=== PATIENT | female | born 1945 | race Caucasian/White ===

== ENCOUNTER 2017-02-10 19:47 | Outpatient (CLI) | payer MEDICARE, OTHER | END 2017-02-10 19:48 | disposition critical access hospital (66) | DX: R53.1 Weakness (principal); R29.810 Facial weakness | CPT/HCPCS: A0425; A0429 ==

== ENCOUNTER 2017-02-10 19:55 | Emergency (ER) | payer MEDICARE, OTHER | END 2017-02-10 22:07 | disposition home or self-care (01) | DX: R53.1 Weakness (principal); Z86.73 Personal history of transient ischemic attack (TIA), and cerebral infarction without residual deficits; I10 Essential (primary) hypertension; I25.2 Old myocardial infarction; G47.30 Sleep apnea, unspecified; K21.9 Gastro-esophageal reflux disease without esophagitis; Z79.82 Long term (current) use of aspirin ==

== ENCOUNTER 2019-07-09 08:19 | Outpatient (CLI) | payer MEDICARE, OTHER ==
--- NOTE | 2019-07-09 10:27 | DEXA Report ---
Reason: POST MENOPAUSAL, SCREENING FOR OSTEOPOROSIS Procedure Date: 07/09/2019 Accession Number: [id number] / [id number] Procedure: DEX - Dexa Spine and/or Hip CPT Code: FULL RESULT: EXAM: Dexa Spine and/or Hip DATE: 07/09/2019 9:05 AM CLINICAL HISTORY: POST MENOPAUSAL, SCREENING FOR OSTEOPOROSIS TECHNIQUE: Dual energy x-ray absorptiometry (DXA) was performed on a [facility]. Regions measured are the AP Spine, femoral neck, and if needed forearm. COMPARISON: 02/12/2012 In accordance with the International Society for Clinical Densitometry (ISCD) guidelines, data from previous exams may be reanalyzed using current recommendations and techniques. This is done to allow a more accurate basis for comparison with the current study. FINDINGS: The data for the lumbar spine is as follows: BMD (g/cm/cm) T-SCORE Z-SCORE REGION L1 1.191 0.5 1.7 L2 1.218 0.2 1.4 L3 1.354 1.3 2.5 L4 1.334 1.1 2.3 TOTAL 1.281 0.8 2.1 NOTE: All evaluable vertebrae are used for classification The data for the hip is as follows: BMD (g/cm/cm) T-SCORE Z-SCORE REGION Neck 0.849 -1.4 0.3 TOTAL 1.030 0.2 1.6 NOTE: The femoral neck or total proximal femur, whichever is lowest, is used for classification. IMPRESSION: THE WHO CLASSIFICATION BASED ON THE INTERNATIONAL REFERENCE STANDARD IS OSTEOPENIA, REFERENCE LEFT FEMORAL NECK. THE FRACTURE RISK IS INCREASED. RECOMMENDATION: Patients with diagnosis of osteoporosis or osteopenia should have regular bone mineral density assessment. For those eligible for Medicare, routine testing is allowed once every 2 years. Testing frequency can be increased for patients who have rapidly progressing disease or for those who are receiving medical therapy to restore bone mass. COMMENT: World Health Organization (WHO) definitions for osteoporosis and osteopenia: NORMAL BMD: T-score at -1.0 or higher, fracture risk is low OSTEOPENIA BMD: T-score between -1.0 and -2.5, fracture risk is increased. OSTEOPOROSIS BMD: T-score at -2.5 or lower, fracture risk is high. National Osteoporosis Foundation recommends: 1. Obtain adequate dietary calcium (at least 1200 mg per day) and vitamin D (400-800 international units per day). 2. Participate, as appropriate, in regular weightbearing and muscle-strengthening exercise. 3. Avoid tobacco use and reduce alcohol and caffeine intake. 4. For more detailed information see the website at www.NOF.org.
== END 2019-07-09 08:20 | disposition home or self-care (01) ==
LOC: DI 08:19
PROVIDERS: ATTEND Family Medicine
DX: Z13.820 Encounter for screening for osteoporosis (principal); M85.88 Other specified disorders of bone density and structure, other site; Z78.0 Asymptomatic menopausal state
CPT/HCPCS: 77080

== ENCOUNTER 2021-11-22 08:17 | Outpatient (CLI) | payer MEDICARE, OTHER ==
--- NOTE | 2021-11-22 08:56 | CT Report ---
PROCEDURE: HEAD WO INDICATIONS: Aphasia, history of cerebrovascular accident TECHNIQUE: Noncontrast 4.5 mm thick angled axial sections acquired from the foramen magnum to the vertex. For r adiation dose reduction, the following was used: automated exposure control, adjustment of mA and/or kV according to patient size. COMPARISON: 02/10/[address] FINDINGS: Image quality: Excellent. CSF spaces: Basal cisterns are patent. No extra-axial fluid collections. Ventricles are normal in size and shape. Brain: Small hypodense region in the left basal ganglia and striatocapsular region, not present on th e prior study. This most likely represents chronic mitral vascular ischemic change or potentially seq uela of remote ischemic event. Otherwise maintained horan-white matter differentiation with no CT evid ence of acute infarct. No acute intracranial hemorrhage, mass effect, or midline shift. Skull and face: Calvarium and visualized facial bones are intact, without suspicious lesions. Sinuses: Visualized sinuses and mastoids are clear. IMPRESSION: No acute intracranial finding. Small left basal ganglia and striatocapsular hypodensity likely chronic vascular ischemic change or potentially remote ischemic event. MRI recommended if ther e concern for an acute ischemic process. Reviewed by: Bryan Jj MD on 11/22/2021 8:54 AM PST Approved by: Bryan Jj MD on 11/22/2021 8:54 AM PST Station ID: [id number]
== END 2021-11-22 08:18 | disposition home or self-care (01) ==
LOC: DI 08:17
PROVIDERS: ATTEND Student in an Organized Health Care Education/Training Program
DX: R47.01 Aphasia (principal); Z86.73 Personal history of transient ischemic attack (TIA), and cerebral infarction without residual deficits

== ENCOUNTER 2021-12-25 09:44 | Outpatient (CLI) | payer MEDICARE, OTHER ==
[2021-12-25] MEDS ORDERED: GADOBUTROL 10 MMOL/10 ML VIAL ONE (10:02)
--- NOTE | 2021-12-25 12:25 | MRI Report ---
PROCEDURE: Brain W/WO INDICATIONS: APHASIA CONTRAST: IV CONTRAST: Gadavist ml: 8.1 TECHNIQUE: Noncontrast axial T1 spin echo, axial T2 fast spin echo, sagittal and axial FLAIR, coronal T2 fast sp in echo, axial gradient echo, axial diffusion and ADC through the brain. After the administration of contrast, axial and coronal T1 spin echo with fat saturation through the brain. COMPARISON: Multiple prior head CT studies FINDINGS: Image quality: Excellent. CSF spaces: Basal cisterns are patent. No extra-axial fluid collections. Ventricles are normal in size and shape. Brain: No restricted diffusion to indicate recent ischemia. Remote lacunar infarct in the left basal ganglia. Additional tiny remote lacunar infarct in the right elin. Moderate chronic microvascular isc hemic changes and mild global cerebral volume loss. No unexpected intracranial susceptibility or enha ncement. No mass effect or midline shift. The major intracranial vascular flow voids are maintained. Skull and face: Calvarial marrow is normal in signal. Orbits appear normal. Sinuses: Moderate sized right mastoid air cell effusion. Left mastoid air cells clear. Paranasal sinu ses are predominantly clear. IMPRESSION: No acute finding. Remote left basal ganglia and right pontine lacunar infarcts. Mild global cerebral volume loss and chronic microvascular ischemic change. Reviewed by: Bryan Jj MD on 12/25/2021 12:24 PM PST Approved by: Bryan Jj MD on 12/25/2021 12:24 PM PST Station ID: [id number]
[2021-12-25] MEDS ORDERED: GADOBUTROL 10 MMOL/10 ML VIAL IVP ONE (12:50)
== END 2021-12-25 09:45 | disposition home or self-care (01) ==
LOC: DI 09:44
PROVIDERS: ATTEND Student in an Organized Health Care Education/Training Program
DX: R47.01 Aphasia (principal); G31.89 Other specified degenerative diseases of nervous system; I67.82 Cerebral ischemia; R90.89 Other abnormal findings on diagnostic imaging of central nervous system
CPT/HCPCS: 70553; A9585

== ENCOUNTER 2023-12-28 14:19 | Outpatient (CLI) | payer MEDICARE, OTHER | END 2023-12-28 14:20 | disposition critical access hospital (66) | LOC: EMS 14:19 | DX: R53.1 Weakness (principal); R47.81 Slurred speech; R53.83 Other fatigue; R29.810 Facial weakness; I10 Essential (primary) hypertension | CPT/HCPCS: A0425; A0429 ==

== ENCOUNTER 2023-12-28 14:34 | Inpatient (IN) | payer MEDICARE, OTHER ==
--- NOTE | 2023-12-28 14:38 | ED Physician Documentation ---
PD HPI FOCAL NEURO - Stated complaint Stated Complaint: GLF/R SIDED WEAKNESS - History obtained from History obtained from: Patient, EMS - Additional information Additional information: This is an 78-year-old woman with history of hypertension and stroke who presents by ambulance with concern for stroke and also a fall today. Reportedly had been weak for a couple of days and she said she started having trouble speaking yesterday morning. Today she was weak and fell going forward and hitting her head and neck on the coffee table. There is no loss of consciousness. 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 Cardiovascular: Coronary stent - Present Medications Home Medications: Ambulatory Orders Medication Instructions Recorded Confirmed Fluoxetine HCl 20 mg PO DAILY 02/22/15 02/10/17 Metoprolol Tartrate 25 mg PO DAILY 02/22/15 02/10/17 Omeprazole 20 mg PO DAILY 02/22/15 02/10/17 Aspirin 81 mg PO DAILY 02/10/17 02/10/17 Cholestyramine [Questran] 4 gm PO DAILY 02/10/17 02/10/17 - Allergies Allergies/Adverse Reactions: Allergies Allergy/AdvReac Type Severity Reaction Status Date / Time levothyroxine sodium Allergy Unknown Verified 12/28/23 14:45 Sulfa (Sulfonamide Allergy Hives Verified 12/28/23 14:45 Antibiotics) - Social History Does the pt smoke?: No Smoking Status: Never smoker Does the pt drink ETOH?: No Does the pt have substance abuse?: No - Immunizations Immunizations are current?: Yes - POLST Patient has POLST: No PD ED PE NORMAL - Vitals Vital signs reviewed: Yes - General General: Other (Slow slurred speech but she is alert and oriented) - HEENT HEENT: PERRL, EOMI, Other (Potentially a right facial droop. There is some bruising over the right anterior neck. No midline spinal tenderness.) - Neck Neck: Supple, no meningeal sign, No bony TTP - Cardiac Cardiac: RRR, No murmur - Respiratory Respiratory: No respiratory distress, Clear bilaterally - Abdomen Abdomen: Non tender - Neuro Neuro: Alert and oriented X 3 Eye Opening: Spontaneous Motor: Obeys Commands Verbal: Oriented GCS Score: 15 - Psych Psych: Normal mood, Normal affect NIHSS - Time Time: 14:35 - Level of Consciousness Level of consciousness: (0) Alert, Keenly responsive LOC Questions: (0) Answers both Q's correct LOC Commands: (0) Performs both correctly - Gaze Best Gaze: (0) Normal - Visual Visual: (0) No loss - Facial Palsy Facial Palsy: (1) Minor paralysis - Motor Arms (both separate) Motor Arm (right): (0) No drift Motor Arm (left): (0) No drift - Motor Legs (both separate) Motor Leg (right): (2) Some effort against gravity Motor Leg (left): (0) No drift - Limb Ataxia Limb Ataxia: (0) Absent - Sensory Sensory: (0) Normal - Best Language Best Language: (1) [id number] - Dysarthria Dysarthria: (2) Severe dysarthria - Extinction and Inattention (formally neg Extinction and inattention: (0) No abnormality - Total Score/Results Total Score/Result: 6 Results - Vitals Vitals: Vital Signs - 24 hr 12/28/23 14:37 Temperature 35.6 C L Heart Rate 70 Respiratory 21 Rate Blood Pressure 221/87 H O2 Saturation 96 Oxygen O2 Source Room air - EKG (time done) 1520 EKG releavant findings:: EKG personally interpreted by author of this note. Relevant findings are: Rate: Rate (enter#) (86) Rhythm: NSR, LAE Rhodell: Normal Intervals: Prolonged QT QRS: Normal Ischemia: Non specific changes. No: ST elevation c/w ischemia - Labs Labs: Laboratory Tests 12/28/23 12/28/23 12/28/23 14:47 14:47 14:47 WBC 6.4 RBC 4.49 Hgb 12.4 Hct 39.7 MCV 88.4 MCH 27.6 MCHC 31.2 L RDW 13.5 Plt Count 183 MPV 9.5 Neut # (Auto) 3.9 Lymph # (Auto) 1.9 Lea # (Auto) 0.4 Eos # (Auto) 0.1 Baso # (Auto) 0.0 Absolute Nucleated RBC 0.00 Nucleated RBC % 0.0 PT 11.7 INR 1.1 Sodium 138 Potassium 4.0 Chloride 108 Carbon Dioxide 23 Anion Gap 7.0 BUN 24 H Creatinine 1.1 Estimated GFR (MDRD) 48 L Glucose 88 Calcium 9.0 Total Bilirubin 0.5 AST 15 ALT 14 Alkaline Phosphatase 59 Total Protein 6.3 L Albumin 3.9 Globulin 2.4 Albumin/Globulin Ratio 1.6 Lipase 23 - Rads (name of study) CT of the head and CT angiography of the head and neck were unremarkable. Relevant Findings:: Final report received, EMP independent interpretation of test PD Medical Decision Making - ED course ED course: 78-year-old woman presents with strokelike symptoms with slurred speech and some lateralizing weakness. She is not a tPA candidate given the timeframe, she was already developing symptoms 2 days ago. Workup in the emergency department demonstrated normal CBC, coags and CMP. CT angiography of the head and neck and plain CT did not demonstrate a stroke, but discussed with patient and that small stroke can be missed by this and probably needs to come in the hospital for MRI. Urine pending on admission. Spoke with Dr Hutson for admit 1530 Departure - Departure Disposition: ED Place in Observation Clinical Impression: Stroke-like symptoms Condition: Stable
[2023-12-28 14:54] LABS: BASOPHILS % (AUTO) 0.6 %; EOSINOPHILS # (AUTO) 0.1 10^3/uL (0.0-0.7); HCT - HEMATOCRIT 39.7 % (37.0-47.0); HGB - HEMOGLOBIN 12.4 g/dL (12.0-16.0); LYMPHOCYTES # (AUTO) 1.9 10^3/uL (1.5-3.5); LYMPHOCYTES % (AUTO) 29.4 %; MEAN CORPUSCULAR HEMOGLOBIN 27.6 pg (27.0-31.0); MEAN CORPUSCULAR HGB CONC 31.2 g/dL (32.0-36.0); MEAN CORPUSCULAR VOLUME 88.4 fL (81.0-99.0); MEAN PLATELET VOLUME 9.5 fL (7.9-10.8); MONOCYTES # (AUTO) 0.4 10^3/uL (0.0-1.0); MONOCYTES % (AUTO) 6.9 %; NEUTROPHILS # (AUTO) 3.9 10^3/uL (1.5-6.6); NEUTROPHILS % (AUTO) 60.6 %; PLT - PLATELET COUNT 183 10^3/uL (130-450); RED BLOOD COUNT 4.49 10^6/uL (4.20-5.40); RED CELL DISTRIBUTION WIDTH 13.5 % (12.0-15.0); WHITE BLOOD COUNT 6.4 x10^3/uL (4.8-10.8)
[2023-12-28 15:01] LABS: INR 1.1 (0.8-1.2); PT - PROTHROMBIN TIME 11.7 secs (9.9-12.6)
[2023-12-28 15:15] LABS: ALBUMIN 3.9 g/dL (3.2-5.5); ALBUMIN/GLOBULIN RATIO 1.6 (1.0-2.2); BILIRUBIN,TOTAL 0.5 mg/dL (0.2-1.0); CREATININE 1.1 mg/dL (0.6-1.3); TOTAL PROTEIN 6.3 g/dL (6.4-8.9)
--- NOTE | 2023-12-28 15:19 | CT Report ---
PROCEDURE: Head W/O Stroke Protocol INDICATIONS: Neuro deficit, acute, stroke suspected TECHNIQUE: Noncontrast 4.5 mm thick angled axial sections acquired from the foramen magnum to the vertex, with c oronal reformats. For radiation dose reduction, the following was used: automated exposure control, adjustment of mA and/or kV according to patient size. COMPARISON: Head CT 11/22/2021. FINDINGS: Image quality: Excellent. CSF spaces: Basal cisterns are patent. No extra-axial fluid collections. Ventricles are normal in size and shape. Brain: No midline shift. No intracranial masses or hemorrhage. Probable prior lacunar infarcts in t he left basal ganglia and left thalamus, similar. No new area of hypodensity in a large vascular dis tribution demonstrated. Periventricular hypodensity most consistent with chronic microvascular ischem ic disease. Skull and face: Calvarium and visualized facial bones are intact, without suspicious lesions. Sinuses: Visualized sinuses and mastoids are clear. IMPRESSION: No acute intracranial hemorrhage. No interval change appreciated. Probable prior lacunar infarcts in the left basal ganglia and thalamus. This study fulfills neurological imaging criteria for inclusion or exclusion of acute stroke therapie s based on available published neurological imaging guidelines. Reviewed by: Erwin Guardado MD on 12/28/2023 3:17 PM PDT Approved by: Erwin Guardado MD on 12/28/2023 3:17 PM PDT Station ID: [id number]
--- NOTE | 2023-12-28 15:23 | CT Report ---
PROCEDURE: Angio Head/Neck INDICATIONS: cva sx TECHNIQUE: After the administration of intravenous contrast, 1 mm thick sections acquired from the aortic arch t hrough the [place] [employer]. 3-dimensional yppyohk-flycigohf-fngldqtcly (MIP) and/or volume renderin g reformats were acquired of the central intracranial vasculature and neck separately. For radiation dose reduction, the following was used: automated exposure control, adjustment of mA and/or kV acco rding to patient size. CONTRAST: 80ml omni 300 COMPARISON: Correlation is made with noncontrast head CTs, 12/28/2023, 11/22/2021. Correlation is also made with brain MRI, 12/25/2021. FINDINGS: Image quality: Diagnostic. HEAD CT: CSF Spaces: Basal cisterns are patent. No extra-axial fluid collections. Ventricles are normal in size and shape. Brain: No significant abnormality is seen for scanning technique. Skull and face: Calvarium and visualized facial bones appear intact, without suspicious lesions. Sinuses: Visualized sinuses and mastoids are clear. HEAD CT ANGIOGRAPHY: Anterior circulation: Intracranial internal carotid arteries are normal in size and flow. The flow within the paired anterior cerebral arteries is normal and symmetric. The flow within the middle cer ebral arteries is normal and symmetric. The anterior communicating artery is seen. No aneurysms are seen. Posterior circulation: The right V4 segment is within normal limits. The left V4 segment and largely terminates in the right posterior inferior cerebellar artery. There is a normal appearing basilar ar arabella. The flow within the posterior cerebral arteries is normal and symmetric. No stenoses, occlusio ns, or aneurysms. NECK CT ANGIOGRAPHY: Carotid system: The great vessels demonstrate a conventional anatomy as they arise from the aortic a [facility]. The origins of the common carotid arteries appear patent. The common carotid arteries demonstr ate normal caliber and courses. The right carotid bifurcation region is widely patent. On the left, there is focal hard and soft plaq ue seen, with 40-50% narrowing involving the origin of the left internal carotid artery. The more dis christiano internal carotid arteries demonstrate normal course and caliber. Posterior circulation: The origins of the vertebral arteries both appear widely patent. The more bonilla perior extracranial portions of both vertebral arteries also demonstrate normal courses and calibers. The right vertebral artery is dominant to the left. Soft tissues: Visualized neck soft tissues demonstrate no suspicious abnormalities. Bones: No suspicious bony lesions. Visualized cervical spine appears normally aligned. IMPRESSION: No significant intracranial arterial abnormality is seen. No significant abnormality is seen within the arteries of the neck. Additional findings: [place] [employer] developmental anomalies The estimate of stenosis included in the report of the imaging study was calculated using the NASCET method Reviewed by: Elver Scott MD on 12/28/2023 2:22 PM EDY Approved by: Elver Scott MD on 12/28/2023 2:22 PM EDY Station ID: [id number]
[2023-12-28] MEDS ORDERED: iohexoL-300 100 ML VIAL ONE (15:24)
[2023-12-28] MEDS ORDERED: ONDANSETRON 4 MG/2 ML VIAL IVP PRN (15:45)
--- NOTE | 2023-12-28 15:47 | HISTORY & PHYSICAL EXAMINATION ---
Chief Complaint - Chief Complaint Chief Complaint: slurred speech, right sided weakness History of Present Illness - Admitted From Admitted From:: ED, came from home - History Obtained From Records Reviewed: Yes History obtained from: ED provider, patient and her Exam Limitations: No - History of Present Illness HPI Comment/Other: 78 years old female with history of hypertension, previous CVA 10 years ago and 3 years ago with residual mild slurred speech and right-sided weakness. Presented to the ED for worsened slurred speech and right-sided weakness for 3 days. Patient reported that they noticed that patient has difficulty of walking about 3 days ago, and slurred speech becomes more significant, along with right-sided facial droop.Patient is able to provide some history and her speech is slurred and slow, however able to understand and able to communicate.Patient denied other discomfort, reports she has been taking her losartan and metoprolol for blood pressure control. No other new medication changes or other discomfort reported In the ED her vitals were stable except hypertension of 220/110, labs unremarkable. CT head and CTA head and neck No acute pathology reported. Patient is admitted to [facility] for further stroke workup History - Past Medical History Cardiovascular: reports: Hypertension, [place] Respiratory: reports: Sleep apnea Neuro: reports: CVA Endocrine/Autoimmune: reports: None GI: reports: GERD : reports: None HEENT: reports: Chronic hearing loss Psych: reports: Anxiety, Panic attacks, Claustrophobia Musculoskeletal: reports: None Derm: reports: None MRSA Hx?: No - Past Surgical History General: reports: Cholecystectomy, Appendectomy /HEADER DOCK: reports: Hysterectomy Cardiovascular: reports: Coronary stent - POLST Patient has POLST: No Meds/Allgy - Home Medications Home Medications: Ambulatory Orders Medication Instructions Recorded Confirmed Fluoxetine HCl 20 mg PO DAILY 02/22/15 02/10/17 Metoprolol Tartrate 25 mg PO DAILY 02/22/15 02/10/17 Omeprazole 20 mg PO DAILY 02/22/15 02/10/17 Aspirin 81 mg PO DAILY 02/10/17 02/10/17 Cholestyramine [Questran] 4 gm PO DAILY 02/10/17 02/10/17 - Allergies Allergies/Adverse Reactions: Allergies Allergy/AdvReac Type Severity Reaction Status Date / Time levothyroxine sodium Allergy Unknown Verified 12/28/23 14:45 Sulfa (Sulfonamide Allergy Hives Verified 12/28/23 14:45 Antibiotics) Review of Systems - Constitutional Constitutional: reports: Weakness. denies: Fever, Chills, Weight loss - Eyes Eyes: denies: Pain, Field loss - Cardiovascular Cariovascular: denies: Palpitations, Chest pain, Edema - Respiratory Respiratory: denies: Cough, Wheezing - Gastrointestinal Gastrointestinal: denies: Abdominal pain, Abdominal distention, Constipation, Diarrhea - Genitourinary Genitourinary: denies: Dysuria, Frequency, Urgency - Integumentary Integumentary: denies: Rash - Neurological Neurological: reports: Focal weakness (Right-sided weakness), Slurred speech - Endocrine Endocrine: denies: Intolerance to cold, Intolerance to heat - Hematologic/Lymphatic Hematologic/Lymphatic: denies: Anemia, Blood clots Prior Level of Functionality: Lives with , they have over 20 years. Baseline ADLs with minimal help Exam - Vital Signs Vital Signs: Vital Signs x48h Temp Pulse Resp BP Pulse Ox 12/28/23 14:37 35.6 C L 70 21 221/87 H 96 - Physical Exam General Appearance: positive: No acute distress, Alert, Anxious Eyes Bilateral: positive: Normal inspection, PERRL, EOMI ENT: positive: Other Neck: positive: Nml inspection, No JVD Respiratory: positive: Chest non-tender, No respiratory distress Cardiovascular: positive: Regular rate & rhythm Peripheral Pulses: positive: 2+ Abdomen: positive: Non-tender, Nml bowel sounds Skin: positive: Color nml Extremities: positive: Non-tender, No pedal edema Neurologic/Psychiatric: positive: Oriented x3, Facial droop (Right side), Slurr ed/abnml speech, Other (Right-sided weakness, barely able to against gravity) Sepsis Event Note (H) - Evaluation Current Stage of Sepsis: Ruled out Conclusion/Plan - Problem List (1) Cerebrovascular accident (CVA) Conclusion/Plan: Slurred speech, right-sided weakness History of CVA, residual mild slurred speech and mild right-sided weakness Clinically appears to have acute/subacute CVA Patient was not taking aspirin at home Give aspirin and Plavix loading dose then continue dual antiplatelet for 21 days Give Lipitor 40 mg once a day MRI brain tomorrow Echocardiogram tomorrow PT OT speech therapy Likely patient need SNF or inpatient rehab Check A1c, fasting lipid Qualifiers: CVA mechanism: unspecified Qualified Code(s): I63.9 - Cerebral infarction, unspecified (2) HTN (hypertension) Conclusion/Plan: Uncontrolled BP 220/110 in the ED Permissive hypertension for the next 3 days Give labetalol 20 mg if SBP over 200 Qualifiers: Hypertension type: primary hypertension Qualified Code(s): I10 - Essential (primary) hypertension - Lab Results Lab results reviewed: Yes Fish Bones: 12/28/23 14:47 12/28/23 14:47 - Diagnostic Imaging Results Diagnostic Imaging Results: positive: Final report reviewed (CT head no acute intracranial abnormality)
[2023-12-28] MEDS: LABETALOL 20 MG/4 ML SYRINGE IVP PRN (17:09)
[2023-12-28] MEDS: SODIUM CHLORIDE FLUSH 0.9% 10 ML SYRINGE IVP SCH (17:21)
[2023-12-28 17:30] LABS: BILIRUBIN,URINE NEGATIVE (NEGATIVE); GLUCOSE, URINE (UA) NEGATIVE (NEGATIVE); KETONES,URINE (UA) NEGATIVE (NEGATIVE); LEUKOCYTE ESTERASE, URINE NEGATIVE (NEGATIVE); NITRITE,URINE NEGATIVE (NEGATIVE); OCCULT BLOOD,URINE NEGATIVE (NEGATIVE); PH,URINE 6.5 PH (5.0-7.5); PROTEIN,URINE TRACE mg/dL (NEGATIVE); UROBILINOGEN,URINE 0.2 (NORMAL) E.U./dL (NORMAL)
[2023-12-28 17:32] LABS: CLARITY,URINE CLEAR (CLEAR)
[2023-12-28] MEDS: CLOPIDOGREL 300 MG TABLET PO ONE (17:40)
[2023-12-28] MEDS: iohexoL-300 100 ML VIAL IVP ONE (18:20)
[2023-12-28] MEDS: SODIUM CHLORIDE 0.9% 500 ML IV ONE (20:04)
[2023-12-28] MEDS: ATORVASTATIN 40 MG TABLET PO SCH (21:14)
[2023-12-28] MEDS: HYDROcod/ACETAM 5/325 MG TABLET PO PRN (21:45)
[2023-12-29 05:15] LABS: BASOPHILS % (AUTO) 0.5 %; EOSINOPHILS # (AUTO) 0.1 10^3/uL (0.0-0.7); EOSINOPHILS % (AUTO) 2.1 %; LYMPHOCYTES # (AUTO) 1.2 10^3/uL (1.5-3.5); MEAN CORPUSCULAR HEMOGLOBIN 27.2 pg (27.0-31.0); MEAN CORPUSCULAR HGB CONC 30.8 g/dL (32.0-36.0); MEAN CORPUSCULAR VOLUME 88.4 fL (81.0-99.0); MEAN PLATELET VOLUME 9.7 fL (7.9-10.8); MONOCYTES # (AUTO) 0.4 10^3/uL (0.0-1.0); MONOCYTES % (AUTO) 7.5 %; NEUTROPHILS # (AUTO) 3.8 10^3/uL (1.5-6.6); NEUTROPHILS % (AUTO) 67.5 %; PLT - PLATELET COUNT 176 10^3/uL (130-450); RED BLOOD COUNT 4.41 10^6/uL (4.20-5.40); RED CELL DISTRIBUTION WIDTH 13.6 % (12.0-15.0); WHITE BLOOD COUNT 5.6 x10^3/uL (4.8-10.8)
[2023-12-29 05:33] LABS: BUN - BLOOD UREA NITROGEN 20 mg/dL (6-20); CALCIUM 8.7 mg/dL (8.5-10.3); CARBON DIOXIDE - CO2 25 mmol/L (21-32); CHLORIDE 108 mmol/L (101-111); CHOL/HDL RATIO 6.4 (<4.4); CHOLESTEROL 237 mg/dL; CREATININE 1.2 mg/dL (0.6-1.3); GFR - MDRD 43 (>89); GLUCOSE 100 mg/dL (74-104); HDL CHOLESTEROL 37 mg/dL; LDL CHOLESTEROL,CALCULATED 161 mg/dL; LDL/HDL RATIO 4.4 (<4.4); POTASSIUM 3.5 mmol/L (3.5-4.5); SODIUM 141 mmol/L (135-145); TRIGLYCERIDES 193 mg/dL (48-352); VLDL CHOLESTEROL 39 mg/dL
--- NOTE | 2023-12-29 07:32 | PROVIDER PROGRESS NOTE ---
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 -Permissive HTN, treat if SBP>200 -give dual antiplatelet for 21 days, then ASA life long -give lipitor -PT/OT/ST -likely needs IPR vs SNF placement (2) HTN (hypertension) Qualifiers: Hypertension type: primary hypertension Qualified Code(s): I10 - Essential (primary) hypertension Assessment/Plan: permissive hypertention (3) HLD (hyperlipidemia) Assessment/Plan: give liptor Goal LDL<70 - Current Meds Current Meds: Current Medications Generic Name Dose Route Start Last Admin Trade Name Freq PRN Reason Stop Dose Admin Hydrocodone Bitart/Acetaminophen 1 tab 12/28/23 15:45 12/28/23 21:45 Hydrocod/Acetam 5/325 Mg Tablet PO 1 tab Q4HR PRN Administration Pain 5 to 7 Atorvastatin Calcium 40 mg 12/28/23 21:00 12/28/23 21:14 Atorvastatin 40 Mg Tablet PO 40 mg QPM JANET Administration Sodium Chloride 10 ml 12/28/23 17:00 12/29/23 01:41 Sodium Chloride Flush 0.9% 10 Ml Syringe IVP 10 ml 0100,0900,1700 JANET Administration - Lab Result Lab results reviewed: Yes Fish Bone Diagrams: 12/29/23 04:53 12/29/23 04:53 - Additional Planning My Orders: My Active Orders 12/28/23 15:45 Activity Orders [RC] Q2HR IO [RC] IOSHIFT Incentive Spirometry - RT [RC] TID Initiate Bowel Care Protocol [RC] .protocol Initiate Line Care Protocol [RC] QSHIFT Initiate Personal Care Protoco [RC] .protocol Oxygen Therapy [RC] .PRN Vital Signs [RC] 0800,1600,0000 Acetaminophen [Tylenol] 650 mg PO Q4HR PRN HYDROcod/ACETAM 5/325 [[place] 5/325] 1 tab PO Q4HR PRN Ondansetron Inj [Zofran Inj] 4 mg IVP Q6HR PRN Ondansetron Odt [Zofran Odt] 4 mg TL Q6HR PRN Sodium Chloride Flush 0.9% [Normal Saline Flush 0.9%] 10 ml IVP PRN PRN Code Status [OTHERS] Routine Condition of Patient [OTHERS] Routine DVT Prophylaxis [OTHERS] Routine 12/28/23 16:35 RN MRI Screening [RC] .ONCE Brain WO [MRI] Routine 12/28/23 16:36 Echo Complete w/Bubble Study [ECHO] Routine 12/28/23 17:00 Sodium Chloride Flush 0.9% [Normal Saline Flush 0.9%] 10 ml IVP 0100,0900,1700 12/28/23 19:42 Labetalol Syringe [Trandate Syringe] 10 mg IVP Q6H PRN 12/28/23 21:00 Atorvastatin [Lipitor] 40 mg PO QPM 12/29/23 Breakfast Dysphagia - Soft and Bite Sized [DIET] 12/29/23 04:53 HEMOGLOBIN A1c% [CHEM] DAILYLAB 12/29/23 09:00 Aspirin EC [Ecotrin] 81 mg PO DAILY Clopidogrel [Plavix] 75 mg PO DAILY Enoxaparin [Lovenox] 40 mg SUBQ DAILY Sertraline [Zoloft] 100 mg PO DAILY 12/30/23 05:00 BMP - BASIC METABOLIC PANEL [CHEM] DAILYLAB CBC [CBC - COMP BLD CT W/AUTO DIFF] [HEME] DAILYLAB 12/31/23 05:00 BMP - BASIC METABOLIC PANEL [CHEM] DAILYLAB CBC [CBC - COMP BLD CT W/AUTO DIFF] [HEME] DAILYLAB 01/01/24 05:00 BMP - BASIC METABOLIC PANEL [CHEM] DAILYLAB CBC [CBC - COMP BLD CT W/AUTO DIFF] [HEME] DAILYLAB 01/02/24 05:00 BMP - BASIC METABOLIC PANEL [CHEM] DAILYLAB CBC [CBC - COMP BLD CT W/AUTO DIFF] [HEME] DAILYLAB Subjective - Subjective Patient Reports: Other (slightly better) Nursing Reports: No Complaints Objective Vital Signs: Vital Signs - 24 hr 12/28/23 12/28/23 12/28/23 14:37 17:07 17:18 Temperature 35.6 C L 36.3 C L Heart Rate 70 Heart Rate [ Brachial] Heart Rate [ 76 84 Radial] Respiratory 21 18 Rate Blood Pressure 221/87 H Blood Pressure 231/106 H 189/93 H [Left Brachial artery] Blood Pressure [Right Brachial artery] O2 Saturation 96 94 12/28/23 12/28/23 12/28/23 17:20 17:28 17:34 Temperature Heart Rate Heart Rate [ Brachial] Heart Rate [ 83 86 86 Radial] Respiratory Rate Blood Pressure Blood Pressure 211/91 H 206/87 H 190/92 H [Left Brachial artery] Blood Pressure [Right Brachial artery] O2 Saturation 12/28/23 12/28/23 12/29/23 17:43 18:31 01:51 Temperature 36.3 C L Heart Rate Heart Rate [ Brachial] Heart Rate [ 87 95 70 Radial] Respiratory 17 Rate Blood Pressure Blood Pressure 192/103 H 134/98 H [Left Brachial artery] Blood Pressure 163/79 H [Right Brachial artery] O2 Saturation 94 12/29/23 04:01 Temperature 36.2 C L Heart Rate Heart Rate [ 70 Brachial] Heart Rate [ Radial] Respiratory 16 Rate Blood Pressure Blood Pressure [Left Brachial artery] Blood Pressure 161/89 H [Right Brachial artery] O2 Saturation 93 Oxygen O2 Source Room air I&O (Last 24 Hrs): Intake and Output Totals x24h 12/27/23 12/28/23 12/29/23 22:59 23:59 23:59 Intake Total 50 Output Total 400 Balance -350 General: Alert, Oriented x3 HEENT: PERRLA, EOMI Neck: Supple Neuro: Alert, Focal Deficits, Speech Slurred, Other (Right-sided weakness) Respiratory: No respiratory distress Abdomen: Soft Skin: No rashes - Results Results: Laboratory Results WBC 5.6 x10^3/uL (4.8-10.8) 12/29/23 04:53 RBC 4.41 10^6/uL (4.20-5.40) 12/29/23 04:53 Hgb 12.0 g/dL (12.0-16.0) 12/29/23 04:53 Hct 39.0 % (37.0-47.0) 12/29/23 04:53 MCV 88.4 fL (81.0-99.0) 12/29/23 04:53 MCH 27.2 pg (27.0-31.0) 12/29/23 04:53 MCHC 30.8 g/dL (32.0-36.0) L 12/29/23 04:53 RDW 13.6 % (12.0-15.0) 12/29/23 04:53 Plt Count 176 10^3/uL (130-450) 12/29/23 04:53 MPV 9.7 fL (7.9-10.8) 12/29/23 04:53 Neut # (Auto) 3.8 10^3/uL (1.5-6.6) 12/29/23 04:53 Lymph # (Auto) 1.2 10^3/uL (1.5-3.5) L 12/29/23 04:53 [place] # (Auto) 0.4 10^3/uL (0.0-1.0) 12/29/23 04:53 Eos # (Auto) 0.1 10^3/uL (0.0-0.7) 12/29/23 04:53 Baso # (Auto) 0.0 10^3/uL (0.0-0.1) 12/29/23 04:53 Absolute Nucleated RBC 0.00 x10^3/uL 12/29/23 04:53 Nucleated RBC % 0.0 /100WBC 12/29/23 04:53 PT 11.7 secs (9.9-12.6) 12/28/23 14:47 INR 1.1 (0.8-1.2) 12/28/23 14:47 Sodium 141 mmol/L (135-145) 12/29/23 04:53 Potassium 3.5 mmol/L (3.5-4.5) 12/29/23 04:53 Chloride 108 mmol/L (101-111) 12/29/23 04:53 Carbon Dioxide 25 mmol/L (21-32) 12/29/23 04:53 Anion Gap 8.0 (6-13) 12/29/23 04:53 BUN 20 mg/dL (6-20) 12/29/23 04:53 Creatinine 1.2 mg/dL (0.6-1.3) 12/29/23 04:53 Estimated GFR (MDRD) 43 (>89) L 12/29/23 04:53 Glucose 100 mg/dL (74-104) 12/29/23 04:53 Calcium 8.7 mg/dL (8.5-10.3) 12/29/23 04:53 Total Bilirubin 0.5 mg/dL (0.2-1.0) 12/28/23 14:47 AST 15 IU/L (10-42) 12/28/23 14:47 ALT 14 IU/L (10-60) 12/28/23 14:47 Alkaline Phosphatase 59 IU/L (42-121) 12/28/23 14:47 Total Protein 6.3 g/dL (6.4-8.9) L 12/28/23 14:47 Albumin 3.9 g/dL (3.2-5.5) 12/28/23 14:47 Globulin 2.4 g/dL (2.1-4.2) 12/28/23 14:47 Albumin/Globulin Ratio 1.6 (1.0-2.2) 12/28/23 14:47 Triglycerides 193 mg/dL (48-352) 12/29/23 04:53 Cholesterol 237 mg/dL (-200) H 12/29/23 04:53 LDL Cholesterol, Calc 161 mg/dL (-129) H 12/29/23 04:53 VLDL Cholesterol 39 mg/dL 12/29/23 04:53 HDL Cholesterol 37 mg/dL (60-) L 12/29/23 04:53 LDL/HDL Ratio 4.4 (<4.4) 12/29/23 04:53 Cholesterol/HDL Ratio 6.4 (<4.4) 12/29/23 04:53 Lipase 23 U/L (11-82) 12/28/23 14:47 Urine Color YELLOW 12/28/23 17:17 Urine Clarity CLEAR (CLEAR) 12/28/23 17:17 Urine pH 6.5 PH (5.0-7.5) 12/28/23 17:17 Ur Specific [place] 1.010 (1.002-1.030) 12/28/23 17:17 Urine Protein TRACE mg/dL (NEGATIVE) 12/28/23 17:17 Urine Glucose (UA) NEGATIVE mg/dL (NEGATIVE) 12/28/23 17:17 Urine Ketones NEGATIVE mg/dL (NEGATIVE) 12/28/23 17:17 Urine Occult Blood NEGATIVE (NEGATIVE) 12/28/23 17:17 Urine Nitrite NEGATIVE (NEGATIVE) 12/28/23 17:17 Urine Bilirubin NEGATIVE (NEGATIVE) 12/28/23 17:17 Urine Urobilinogen 0.2 (NORMAL) E.U./dL (NORMAL) 12/28/23 17:17 Ur Leukocyte Esterase NEGATIVE (NEGATIVE) 12/28/23 17:17 Ur Microscopic Review NOT INDICATED 12/28/23 17:17 Urine Culture Comments NOT INDICATED 12/28/23 17:17 - Procedures Procedures: Procedures CATARAC PHACOEMULS/ASPIR (02/23/15) INSERT LENS AT CATAR EXT (02/23/15) Sepsis Event Note (H) - Evaluation Current Stage of Sepsis: Ruled out ABX Reporting Has patient been on IV antibiotics over the past 48 hours?: No
[2023-12-29] MEDS: ASPIRIN EC 81 MG TABLET PO SCH (08:47)
[2023-12-29] MEDS: ENOXAPARIN 40 MG/0.4 ML SYRINGE SUBQ SCH (08:47)
[2023-12-29] MEDS: SERTRALINE 50 MG TABLET PO SCH (08:47)
[2023-12-29] MEDS: CLOPIDOGREL 75 MG TABLET PO SCH (08:47)
[2023-12-29 09:06] LABS: ESTIMATED AVERAGE GLUCOSE 111 mg/dL (70-100); HEMOGLOBIN A1c% 5.5 % (4.27-6.07)
--- NOTE | 2023-12-29 15:08 | PHARMACY PROGRESS NOTE ---
- Best Possible Medication History Admit Date and Time: 12/28/23 1545 Processed by: Pharmacy Medications reviewed in ED?: Yes Medication History completed: Yes Patient Interview: Completed Secondary Source(s): Pharmacy records, Insurance records As the person ultimately responsible for medication therapy, providers are able to order a medication from an existing home medication list in [facility] via the "Reconcile Routine" prior to Confirmation of that medication by media production support manager. Such practice is discouraged except when the physician, in their clinical judgment, deems that a medical need exists for a medication without regard to previous use.
[2023-12-29] MEDS: LABETALOL 20 MG/4 ML SYRINGE IVP PRN (16:34)
[2023-12-29] MEDS: ACETAMINOPHEN 325 MG TABLET PO PRN (17:25)
--- NOTE | 2023-12-29 18:39 | MRI Report ---
PROCEDURE: Brain WO INDICATIONS: cva TECHNIQUE: Noncontrast axial T1 spin echo, axial T2 fast spin echo, sagittal and axial FLAIR, coronal T2 fast sp in echo, axial gradient echo, axial diffusion and ADC through the brain. COMPARISON: None. FINDINGS: Image quality: Excellent. The ventricular system and cortical sulci demonstrate atrophy, consistent for patient's stated age. There are areas of hyperintense T2/FLAIR signal in the periventricular and subcortical white matter. There is no acute intra or extra-axial fluid collection. No acute hemorrhage, mass lesion or midlin e shift. Brainstem is unremarkable. Diffusion-weighted images demonstrate punctate area of hyperint ense diffusion within the left internal capsule. It demonstrates hypointense ADC signal. No chronic i schemic insults. Normal intravascular flow voids are present. Left basal ganglia focus of lacunar i nfarction is present. Globes are symmetrical. Sinuses are aerated. Osseous structures are intact. Mil d fluid is present within the right mastoid air cells. Recommend correlation to potential mastoiditis . IMPRESSION: Small punctate focus of acute/subacute ischemia in the left internal capsule. No superimposed hemorrh age. Moderate atrophy and chronic microvascular ischemic changes. Reviewed by: Leeann Kimball MD on 12/29/2023 6:37 PM PDT Approved by: Leeann Kimball MD on 12/29/2023 6:37 PM PDT Station ID: [id number]
[2023-12-30] MEDS: SODIUM CHLORIDE FLUSH 0.9% 10 ML SYRINGE IVP PRN (01:25)
[2023-12-30 05:42] LABS: BASOPHILS % (AUTO) 0.6 %; EOSINOPHILS # (AUTO) 0.2 10^3/uL (0.0-0.7); EOSINOPHILS % (AUTO) 2.6 %; HCT - HEMATOCRIT 37.4 % (37.0-47.0); HGB - HEMOGLOBIN 11.8 g/dL (12.0-16.0); LYMPHOCYTES # (AUTO) 1.6 10^3/uL (1.5-3.5); LYMPHOCYTES % (AUTO) 25.9 %; MEAN CORPUSCULAR HEMOGLOBIN 27.2 pg (27.0-31.0); MEAN CORPUSCULAR HGB CONC 31.6 g/dL (32.0-36.0); MEAN CORPUSCULAR VOLUME 86.2 fL (81.0-99.0); MEAN PLATELET VOLUME 9.9 fL (7.9-10.8); MONOCYTES # (AUTO) 0.5 10^3/uL (0.0-1.0); MONOCYTES % (AUTO) 8.8 %; NEUTROPHILS # (AUTO) 3.8 10^3/uL (1.5-6.6); NEUTROPHILS % (AUTO) 61.8 %; PLT - PLATELET COUNT 187 10^3/uL (130-450); RED BLOOD COUNT 4.34 10^6/uL (4.20-5.40); RED CELL DISTRIBUTION WIDTH 13.5 % (12.0-15.0); WHITE BLOOD COUNT 6.2 x10^3/uL (4.8-10.8)
[2023-12-30 05:56] LABS: CALCIUM 9.1 mg/dL (8.5-10.3); CREATININE 1.1 mg/dL (0.6-1.3); POTASSIUM 3.5 mmol/L (3.5-4.5)
[2023-12-30] MEDS: polyethylene glycoL 3350 17 GM PACKET PO SCH (08:46)
[2023-12-30] MEDS: hydrALAZINE INJ 20 MG/ML VIAL IVP PRN (11:35)
[2023-12-30] MEDS: ONDANSETRON ODT 4 MG TABLET TL PRN (14:00)
--- NOTE | 2023-12-30 16:42 | PROVIDER PROGRESS NOTE ---
Subjective - Prog Note Date Prog Note Date: 12/30/23 Prog Note Time: 16:39 - Subjective Pt reports feeling: No change Subjective: When assessing her home life, she lives with her . She is with limited mobility but at home she is able to stand and pivot. She does not ambulate much. Here, physical therapy has not really work with her because of elevated blood pressure to 226 systolic. She is very fatigued with this. Denies chest pain, shortness of breath. Today she was 199 systolic whereas the 226 was yesterday. She has been getting labetalol and hydralazine as needed. We are allowing permissive hypertension for the first 48 to 72 hours. She was admitted on the and today will be her third day. She can swallow. Has a little bit of hand eye coordination issues with try to get food to her mouth. She tells me that she had a left eye procedure 4 weeks ago. She has been told to continue her eyedrops of prednisolone and ketorolac daily until January 07. She wonders if I could order those for her. Current Medications - Current Medications Current Medications: Active Medications Acetaminophen (Acetaminophen 325 Mg Tablet) 650 mg PO Q4HR PRN PRN Reason: Pain 1 to 4, or Fever Last Admin: 12/30/23 12:05 Dose: 650 mg Hydrocodone Bitart/Acetaminophen (Hydrocod/Acetam 5/325 Mg Tablet) 1 tab PO Q4HR PRN PRN Reason: Pain 5 to 7 Last Admin: 12/28/23 21:45 Dose: 1 tab Aspirin (Aspirin Ec 81 Mg Tablet) 81 mg PO DAILY [facility] Last Admin: 12/30/23 08:45 Dose: 81 mg Atorvastatin Calcium (Atorvastatin 40 Mg Tablet) 40 mg PO QPM [facility] Last Admin: 12/29/23 20:43 Dose: 40 mg Clopidogrel Bisulfate (Clopidogrel 75 Mg Tablet) 75 mg PO DAILY [facility] Last Admin: 12/30/23 08:45 Dose: 75 mg Enoxaparin Sodium (Enoxaparin 40 Mg/0.4 Ml Syringe) 40 mg SUBQ DAILY [facility] Last Admin: 12/30/23 08:45 Dose: 40 mg Hydralazine HCl (Hydralazine Inj 20 Mg/Ml Vial) 10 mg IVP Q6H PRN PRN Reason: if SBP persistent >200 Last Admin: 12/30/23 11:35 Dose: 10 mg Labetalol HCl (Labetalol 20 Mg/4 Ml Syringe) 10 mg IVP Q6H PRN PRN Reason: if SBP>200 Last Admin: 12/30/23 01:25 Dose: 10 mg Non-Formulary Medication (Ketorolac 0.45% Ophth Drops [Acuvail]) 1 drops LEFTEYE QID [facility] Non-Formulary Medication (Prednisolone 1% Ophth Drops [Pred Forte 1% Ophth Drops]) 1 drops LEFTEYE QID [facility] Ondansetron HCl (Ondansetron Odt 4 Mg Tablet) 4 mg TL Q6HR PRN PRN Reason: Nausea / Vomiting Last Admin: 12/30/23 14:00 Dose: 4 mg Ondansetron HCl (Ondansetron 4 Mg/2 Ml Vial) 4 mg IVP Q6HR PRN PRN Reason: Nausea / Vomiting Polyethylene Glycol (Polyethylene Glycol 3350 17 Gm Packet) 17 gm PO DAILY [facility] Last Admin: 12/30/23 08:46 Dose: 17 gm Sertraline HCl (Sertraline 50 Mg Tablet) 100 mg PO DAILY [facility] Last Admin: 12/30/23 08:45 Dose: 100 mg Sertraline HCl (Sertraline 50 Mg Tablet) 100 mg PO DAILY [facility] Sodium Chloride (Sodium Chloride Flush 0.9% 10 Ml Syringe) 10 ml IVP 0100,0900,1700 [facility] Last Admin: 12/30/23 16:21 Dose: 10 ml Sodium Chloride (Sodium Chloride Flush 0.9% 10 Ml Syringe) 10 ml IVP PRN PRN PRN Reason: NEEDED PER PROVIDER ORDERS Last Admin: 12/30/23 11:35 Dose: 10 ml Metoprolol Tartrate 25 mg PO DAILY 02/22/15 Omeprazole 20 mg PO DAILY 02/22/15 Aspirin 81 mg PO DAILY 02/10/17 Cholestyramine [Questran] 4 gm PO DAILY 02/10/17 Ketorolac 0.45% Ophth Drops [Acuvail] 1 drops LEFTEYE QID 12/29/23 Losartan [Cozaar] 50 mg PO DAILY 12/29/23 Sertraline HCl 100 mg PO DAILY 12/29/23 prednisoLONE 1% OPHTH DROPS [Pred Forte 1% Ophth Drops] 1 drops LEFTEYE QID 12/18 11/12 Objective - Vital Signs/Intake & Output Reviewed Vital Signs: Yes Vital Signs: Vital Signs x48h Temp Pulse Pulse Resp BP BP BP 12/30/23 16:08 36.6 C 93 18 172/90 H 12/30/23 14:02 36.7 C 101 H 18 187/84 H 12/30/23 13:30 175/75 H 12/30/23 12:51 36.7 C 78 18 180/111 H 12/30/23 12:07 80 183/95 H 12/30/23 12:05 183/95 H 12/30/23 11:55 202/105 H 12/30/23 11:50 226/104 H 12/30/23 11:43 243/108 H 12/30/23 11:35 229/114 H 12/30/23 11:31 75 229/114 H 12/30/23 09:00 36.6 C 78 16 180/111 H 226/93 H 12/30/23 08:44 82 187/94 H Pulse Ox 12/30/23 16:08 92 12/30/23 14:02 95 12/30/23 13:30 12/30/23 12:51 94 12/30/23 12:07 12/30/23 12:05 12/30/23 11:55 12/30/23 11:50 12/30/23 11:43 12/30/23 11:35 12/30/23 11:31 12/30/23 09:00 96 12/30/23 08:44 Intake & Output: Intake & Output 12/27/23 12/28/23 12/29/23 12/30/23 22:59 23:59 23:59 23:59 Intake Total 1260 540 Output Total 1600 1400 Balance -340 -860 - Objective General Appearance: positive: No acute distress, Alert, Other (Fatigued appearing elderly female without facial droop But speech is slurred) Eyes Bilateral: positive: PERRL, EOMI ENT: positive: No signs of dehydration Neck: positive: No JVD. negative: Stiff neck Respiratory: positive: No respiratory distress. negative: Wheezes, Rales, Rhonchi Cardiovascular: positive: Regular rate & rhythm Abdomen: positive: Non-tender, No organomegaly, Nml bowel sounds Skin: positive: Warm, Dry Extremities: positive: Full ROM, No pedal edema Neurologic/Psychiatric: positive: Oriented x3, CN's nml (2-12). negative: Motor nml (Right-sided weakness. Right lower extremity worse than right upper extremity) - Lab Results Fish Bones: 12/30/23 04:59 12/30/23 04:59 Other Labs: Lab Results x24hrs 12/30/23 12/30/23 Range/Units 04:59 04:59 WBC 6.2 (4.8-10.8) x10^3/uL RBC 4.34 (4.20-5.40) 10^6/uL Hgb 11.8 L (12.0-16.0) g/dL Hct 37.4 (37.0-47.0) % MCV 86.2 (81.0-99.0) fL MCH 27.2 (27.0-31.0) pg MCHC 31.6 L (32.0-36.0) g/dL RDW 13.5 (12.0-15.0) % Plt Count 187 (130-450) 10^3/uL MPV 9.9 (7.9-10.8) fL Neut # (Auto) 3.8 (1.5-6.6) 10^3/uL Lymph # (Auto) 1.6 (1.5-3.5) 10^3/uL [place] # (Auto) 0.5 (0.0-1.0) 10^3/uL Eos # (Auto) 0.2 (0.0-0.7) 10^3/uL Baso # (Auto) 0.0 (0.0-0.1) 10^3/uL Absolute Nucleated RBC 0.00 x10^3/uL Nucleated RBC % 0.0 /100WBC Sodium 139 (135-145) mmol/L Potassium 3.5 (3.5-4.5) mmol/L Chloride 108 (101-111) mmol/L Carbon Dioxide 23 (21-32) mmol/L Anion Gap 8.0 (6-13) BUN 17 (6-20) mg/dL Creatinine 1.1 (0.6-1.3) mg/dL Estimated GFR (MDRD) 48 L (>89) Glucose 96 (74-104) mg/dL Calcium 9.1 (8.5-10.3) mg/dL Sepsis Event Note (H) - Evaluation Current Stage of Sepsis: Ruled out Assessment/Plan - Problem List (1) Cerebrovascular accident (CVA) Impression: Today is day 3 of hospitalization. 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 This is left her with right body weakness, and inability to use right hand very well. Treatment is dual platelet therapy with Plavix and aspirin for 21 days Permissive hypertension temporarily which I will now start to work on since is on her third day. Plan is to work with PT today if her blood pressure is stable. I will order adaptive spoon and fork for her hand. I have asked social work to choice her to see where she would like to go for rehab. I would also like to get her blood pressure under control today before she leaves the hospital.Symptoms of her elevated blood pressure is excessive fatigue. She does not have chest pain or shortness of breath. Once her blood pressure medications have been resumed and I can verify that she is not going to have progression of her stroke, I would anticipate transition to the rehab facility.I have asked the addiction social worker to asked the patient which rehab facility she would like to go to. Anticipate 1 day more and then she can be discharged on December 31 Qualifiers: CVA mechanism: occlusion Precerebral and cerebral artery: small artery Qualified Code(s): I63.81 - Other cerebral infarction due to occlusion or stenosis of small artery (2) Hypertension not at goal Impression: Home medications are Cozaar and metoprolol. Here she has been on hydralazine as needed and labetalol as needed. To be given for systolic blood pressure greater than 200. Plan: Resume her Cozaar and metoprolol tomorrow morning. (3) S/P eye surgery Impression: I am letting the pharmacy know that the patient can use her own prednisolone and ketorolac drops
[2023-12-30] MEDS: KETOROLAC 0.45% OPHTH DROPS LEFTEYE SCH (17:38)
[2023-12-30] MEDS: prednisoLONE 1% OPHTH DROPS 75 DROPS/5 ML BOTTLE LEFTEYE SCH (17:45)
[2023-12-31 05:38] LABS: BASOPHILS % (AUTO) 0.6 %; EOSINOPHILS # (AUTO) 0.2 10^3/uL (0.0-0.7); EOSINOPHILS % (AUTO) 2.6 %; HCT - HEMATOCRIT 38.8 % (37.0-47.0); LYMPHOCYTES # (AUTO) 1.9 10^3/uL (1.5-3.5); LYMPHOCYTES % (AUTO) 26.5 %; MEAN CORPUSCULAR HEMOGLOBIN 27.3 pg (27.0-31.0); MEAN CORPUSCULAR HGB CONC 30.9 g/dL (32.0-36.0); MEAN CORPUSCULAR VOLUME 88.4 fL (81.0-99.0); MEAN PLATELET VOLUME 9.9 fL (7.9-10.8); MONOCYTES # (AUTO) 0.6 10^3/uL (0.0-1.0); MONOCYTES % (AUTO) 8.6 %; NEUTROPHILS # (AUTO) 4.3 10^3/uL (1.5-6.6); NEUTROPHILS % (AUTO) 61.4 %; PLT - PLATELET COUNT 190 10^3/uL (130-450); RED BLOOD COUNT 4.39 10^6/uL (4.20-5.40); RED CELL DISTRIBUTION WIDTH 13.7 % (12.0-15.0)
[2023-12-31 06:05] LABS: CALCIUM 9.2 mg/dL (8.5-10.3); CREATININE 1.3 mg/dL (0.6-1.3); POTASSIUM 3.7 mmol/L (3.5-4.5)
[2023-12-31] MEDS: METOPROLOL TARTRATE 25 MG TABLET PO SCH (08:46)
[2023-12-31] MEDS: LOSARTAN 50 MG TABLET PO SCH (08:46)
[2023-12-31] MEDS: SERTRALINE 50 MG TABLET PO SCH (10:26)
--- NOTE | 2023-12-31 11:35 | Discharge Plan ---
"Discharge Plan for SNF / [facility] - Discharge Plan And Transition Orders Problem Reviewed?: Yes Disposition: SNF DC/Xfer Condition: Stable Allergies and Adverse Reactions: Allergies Allergy/AdvReac Type Severity Reaction Status Date / Time levothyroxine sodium Allergy Unknown Verified 12/28/23 14:45 Sulfa (Sulfonamide Allergy Hives Verified 12/28/23 14:45 Antibiotics) Health Concerns: (1) Cerebrovascular accident (CVA) Impression: She has a left internal capsule stroke on MRI. This is left her with right body weakness, and inability to use right hand very well.When assessing her home life, she lives with her . She is with limited mobility but at home she is able to stand and pivot. She does not ambulate much. Treatment here consisted of dual platelet therapy with Plavix and aspirin for 21 days. At the end of 21 days it should be decided whether she is going to stay on Plavix or aspirin but not both. Permissive hypertension temporarily allowed and on her 3rd hospital day we resumed her home meds. His blood pressure was very elevated, PT was unable to work with her. They did not feel it was a safe thing to do. However by the afternoon of the third day and at discharge the patient was able to work with PT. They continue to recommend halfway facility placement. She was seen by speech therapy on the day of discharge. She has mild expressive aphasia, mild dysarthria, and she is endorsing some odynophagia with mild asymmetry of the neck muscles. CT of the neck reviewed for the soft tissues. She had a CT angiogram on December 27 and the soft tissues that were visualized demonstrated no suspicious abnormalities. At this time I think the patient is stable for transfer. Qualifiers: CVA mechanism: occlusion Precerebral and cerebral artery: small artery Qualified Code(s): I63.81 - Other cerebral infarction due to occlusion or stenosis of small artery (2) Hypertension not at goal Impression: Home medications are Cozaar and metoprolol. Here she has been on hydralazine as needed and labetalol as needed. Her Cozaar and metoprolol have been resumed. Blood pressure on the day of discharge was 167/83, 173/83, and respirations were 20 with 92% room air. (3) S/P eye surgery Impression: The patient had eye surgery. She is to be on eyedrops for 21 days. Initially nursing requested that I resume prednisolone eyedrops as well as ketorolac eyedrops. The stated she is no longer on those and is only on prednisolone eyedrops for the 21 days. Plan of Treatment: Patient will be discharged to a halfway facility for physical rehab. Care Goals: When she is strong enough to return to independent activities with regards to self care, she may be discharged home. Assessment: Patient is alert, oriented, is decisional. - SNF / [facility] Transition Orders Admit to (Facility): [facility] Discharge Diagnosis: 1. Stroke 2. Hypertension not at goal 3. Status post eye surgery 4. Hyperlipidemia 5. Obstructive sleep apnea 6. GERD Medicare Certification Statement: I certify that [facility] halfway care is medically necessary on a continuing basis for any of the conditions for which she/he is receiving care during hospitalization. Notify PCP of admission and forward orders to primary provider for signature. Weight on admission and: Weekly Other Notification Orders: Call PCP immediately if patient develops dyspnea, chest pain/tightness or edema. House Bowel Program: Yes Additional Bowel Program Orders: If no BM after 2 days, nurse may give M.O.M. 30ml PO PRN and/or ducolax Supp 1 VA and/or DAVID 250mg P.O., and/or senna 1-2 tabs PO. On day 3 nurse may give repeat above order until residents constipation is resolved. Annual Influenza Vaccine (between Jun 20 and January 17): Yes Two-step PPD per [facility] [phone] or approved exception documents: No Medication Orders: PLEASE REFER TO THE DISCHARGE MEDICATION LIST. Insulin Orders?: No - Diet Type: Geriatric Texture: Dysphagia [facility] Liquids: Thin May have monthly special meal: Yes - Therapies | Activity Therapy: Evaluation | Treat if indicated: Speech, PT, OT Rehabilitation Potential: Return to independent living Activity: Activity as Tolerated Weight Bearing: Full Weight Assistance Devices: Wheelchair, Walker Follow Up: Her primary care provider is Arnie Carrillo MD"
--- NOTE | 2023-12-31 11:43 | DISCHARGE SUMMARY ---
Discharge Summary Admit Date: 12/28/23 Discharge Date: 12/31/23 Discharging Provider: Faye Young MD Primary Care Provider: Arnie Carrillo MD Code Status: Attempt Resuscitation Condition at Discharge: Stable Discharge Disposition: [facility] DC/Xfer - DIAGNOSES Admission Diagnoses: 1. Stroke 2. Hypertension not at goal 3. Status post eye surgery 4. Hyperlipidemia 5. Obstructive sleep apnea 6. GERD - HPI History of Present Illness: 78 years old female with history of hypertension, previous CVA 10 years ago and 3 years ago with residual mild slurred speech and right-sided weakness. Presented to the ED for worsened slurred speech and right-sided weakness for 3 days. Patient reported that they noticed that patient has difficulty of walking about 3 days ago, and slurred speech becomes more significant, along with right-sided facial droop.Patient is able to provide some history and her speech is slurred and slow, however able to understand and able to communicate.Patient denied other discomfort, reports she has been taking her losartan and metoprolol for blood pressure control. No other new medication changes or other discomfort reported In the ED her vitals were stable except hypertension of 220/110, labs unremarkable. CT head and CTA head and neck No acute pathology reported. 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 This is left her with right body weakness, and inability to use right hand very well.When assessing her home life, she lives with her . She is with limited mobility but at home she is able to stand and pivot. She does not ambulate much. Treatment here consisted of dual platelet therapy with Plavix and aspirin for 21 days. At the end of 21 days it should be decided whether she is going to stay on Plavix or aspirin but not both. Permissive hypertension temporarily allowed and on her 3rd hospital day we resumed her home meds. His blood pressure was very elevated, PT was unable to work with her. They did not feel it was a safe thing to do. However by the afternoon of the third day and at discharge the patient was able to work with PT. They continue to recommend jail facility placement. She was seen by speech therapy on the day of discharge. She has mild expressive aphasia, mild dysarthria, and she is endorsing some odynophagia with mild asymmetry of the neck muscles. CT of the neck reviewed for the soft tissues. She had a CT angiogram on December 27 and the soft tissues that were visualized demonstrated no suspicious abnormalities. At this time I think the patient is stable for transfer. Qualifiers: CVA mechanism: occlusion Precerebral and cerebral artery: small artery Qualified Code(s): I63.81 - Other cerebral infarction due to occlusion or stenosis of small artery (2) Hypertension not at goal Impression: Home medications are Cozaar and metoprolol. Here she has been on hydralazine as needed and labetalol as needed. Her Cozaar and metoprolol have been resumed. Blood pressure on the day of discharge was 167/83, 173/83, and respirations were 20 with 92% room air. (3) S/P eye surgery Impression: The patient had eye surgery. She is to be on eyedrops for 21 days. Initially nursing requested that I resume prednisolone eyedrops as well as ketorolac eyedrops. The stated she is no longer on those and is only on prednisolone eyedrops for the 21 days. She is discharged in stable condition to [facility] in [place]. Exam today has a temperature of 36.6, heart rate 92, blood pressure 173/83. Respirations 20. 92% on room air. She is a 1 person assist and is using a gait belt and a walker. She is able to go from supine to sitting, sitting to s tanding. Able to ambulate a few feet. She is oriented to person, place, time and situation. Intermittent confusion. Speech is slightly slurred, with some expressive aphasia. Right body weakness as her neurological deficit. Neck is supple, lungs are clear, regular rate and rhythm. Abdomen is soft and nontender with last bowel movement December 29. She is incontinent of urine and needs a pure wick or a brief/pad. She has bruised knees, and a bruise underneath her chin. Her sacrum is slightly pink but no skin breakdown. Greater than 30 minutes was spent coordinating discharge This document was made in part using voice recognition software. While efforts are made to proofread this document, sound alike and grammatical errors may occur. - ALLERGIES Allergies/Adverse Reactions: Allergies Allergy/AdvReac Type Severity Reaction Status Date / Time levothyroxine sodium Allergy Unknown Verified 12/28/23 14:45 Sulfa (Sulfonamide Allergy Hives Verified 12/28/23 14:45 Antibiotics) - MEDICATIONS Home Medications: Ambulatory Orders Medication Instructions Recorded Confirmed Metoprolol Tartrate 25 mg PO DAILY 02/22/15 12/29/23 Omeprazole 20 mg PO DAILY 02/22/15 12/29/23 Aspirin 81 mg PO DAILY 02/10/17 12/29/23 prednisoLONE 1% OPHTH DROPS [Pred 1 drops LEFTEYE QID 12/29/23 12/29/23 Forte 1% Ophth Drops] Acetaminophen [Tylenol] 650 mg PO Q4HR PRN tab 12/31/23 Atorvastatin [Lipitor] 40 mg PO QPM #0 tab 12/31/23 Cholestyramine [Questran] 4 gm PO DAILY #0 12/31/23 12/29/23 Clopidogrel [Plavix] 75 mg PO DAILY tab 12/31/23 Losartan [Cozaar] 50 mg PO DAILY #0 12/31/23 12/29/23 Sertraline HCl 100 mg PO DAILY #0 12/31/23 12/29/23 - LABS Result Diagrams: 12/31/23 04:49 12/31/23 04:49 - SEPSIS Current Stage of Sepsis: Ruled out
[2023-12-31 13:12] VITALS: BP 182/83; O2SAT 94
== END 2023-12-31 14:33 | DRG 65 ==
LOC: EDBD → ED 14:34 → MS3 15:45
PROVIDERS: ADMIT Internal Medicine; ATTEND Specialist
DX: I63.81 Other cerebral infarction due to occlusion or stenosis of small artery (principal); R53.1 Weakness; R47.1 Dysarthria and anarthria; G81.91 Hemiplegia, unspecified affecting right dominant side; R94.31 Abnormal electrocardiogram [ECG] [EKG]; S10.93XA Contusion of unspecified part of neck, initial encounter; W19.XXXA Unspecified fall, initial encounter; I10 Essential (primary) hypertension; Z86.73 Personal history of transient ischemic attack (TIA), and cerebral infarction without residual deficits; R29.706 NIHSS score 6; R29.810 Facial weakness; R47.81 Slurred speech; E78.5 Hyperlipidemia, unspecified; G47.33 Obstructive sleep apnea (adult) (pediatric); K21.9 Gastro-esophageal reflux disease without esophagitis; I25.2 Old myocardial infarction; H91.90 Unspecified hearing loss, unspecified ear; I11.9 Hypertensive heart disease without heart failure; Z79.82 Long term (current) use of aspirin; Z79.899 Other long term (current) drug therapy; Z88.2 Allergy status to sulfonamides; Z88.8 Allergy status to other drugs, medicaments and biological substances; Z98.890 Other specified postprocedural states
CPT/HCPCS: 36415; 70450; 70496; 70498; 70551; 80048; 80053; 80061; 81003; 83036; 83690; 85025; 85610; 92522; 93005; 93307; 97163; 97166; 99285; A9270; J1650; Q0162; Q9967; 81001; 83721; 87086

== ENCOUNTER 2024-02-12 18:06 | Emergency (ER) | payer MEDICARE, OTHER ==
--- NOTE | 2024-02-12 19:07 | ED Physician Documentation ---
History of Present Illness - Stated complaint Stated Complaint: DISCOLOR HANDS - Chief complaint Chief Complaint: Ext Problem - History obtained from History obtained from: Patient, Family - History of Present Illness Timing: Today Pain level max: 0 Pain level now: 0 - Additonal information Additional information: 78-year-old female recently diagnosed with a stroke. Lives at home with her . He states that he noticed bruising on her hands today and some yellow discoloration to the hands. Nothing makes it better or worse. Patient is unable to give any history. No abdominal pain, vomiting. He states that he called her doctor and they told him to come here to have her bilirubin checked for jaundice. Patient notably has no other yellowing of the skin, no yellowing of the eyes. 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 Cardiovascular: Coronary stent - Present Medications Home Medications: Ambulatory Orders Medication Instructions Recorded Confirmed Metoprolol Tartrate 25 mg PO DAILY 02/22/15 12/29/23 Omeprazole 20 mg PO DAILY 02/22/15 12/29/23 Aspirin 81 mg PO DAILY 02/10/17 12/29/23 prednisoLONE 1% OPHTH DROPS [Pred 1 drops LEFTEYE QID 12/29/23 12/29/23 Forte 1% Ophth Drops] Acetaminophen [Tylenol] 650 mg PO Q4HR PRN tab 12/31/23 Atorvastatin [Lipitor] 40 mg PO QPM #0 tab 12/31/23 Cholestyramine [Questran] 4 gm PO DAILY #0 12/31/23 12/29/23 Clopidogrel [Plavix] 75 mg PO DAILY tab 12/31/23 Losartan [Cozaar] 50 mg PO DAILY #0 12/31/23 12/29/23 Sertraline HCl 100 mg PO DAILY #0 12/31/23 12/29/23 - Allergies Allergies/Adverse Reactions: Allergies Allergy/AdvReac Type Severity Reaction Status Date / Time levothyroxine sodium Allergy Unknown Verified 02/12/24 18:10 Sulfa (Sulfonamide Allergy Hives Verified 02/12/24 18:10 Antibiotics) - Social History Does the pt smoke?: No Smoking Status: Never smoker Does the pt drink ETOH?: No Does the pt have substance abuse?: No - Immunizations Immunizations are current?: Yes - POLST Patient has POLST: No PD ED PE NORMAL - Vitals Vital signs reviewed: Yes - General General: No acute distress, Well developed/nourished, Other (Alert, at her normal baseline per ) - HEENT HEENT: PERRL, EOMI, Moist mucous membranes, Pharynx benign, Other (No scleral icterus) - Neck Neck: Supple, no meningeal sign - Cardiac Cardiac: RRR, Strong equal pulses - Respiratory Respiratory: No respiratory distress, Clear bilaterally - Abdomen Abdomen: Soft, Non tender, Non distended - Back Back: No spinal TTP - Derm Derm: Warm and dry - Extremities Extremities: Other (Mild bruising to the bilateral hands with some yellow discoloration that appears consistent with healing bruises.) - Neuro Neuro: Other (At her normal baseline, alert) Results - Vitals Vitals: Vital Signs - 24 hr 02/12/24 02/12/24 18:10 20:10 Temperature 36.8 C 36.7 C Heart Rate 74 74 Respiratory 16 18 Rate Blood Pressure 149/64 H 150/63 H O2 Saturation 100 98 Oxygen O2 Source Room air - Labs Labs: Laboratory Tests 02/12/24 02/12/24 02/12/24 19:08 19:08 19:08 WBC 8.7 RBC 3.95 L Hgb 11.2 L Hct 35.5 L MCV 89.9 MCH 28.4 MCHC 31.5 L RDW 14.4 Plt Count 193 MPV 9.5 Neut # (Auto) 5.1 Lymph # (Auto) 2.7 [place] # (Auto) 0.6 Eos # (Auto) 0.2 Baso # (Auto) 0.0 Absolute Nucleated RBC 0.00 Nucleated RBC % 0.0 PT 11.6 INR 1.1 APTT 28.7 Sodium 138 Potassium 3.8 Chloride 106 Carbon Dioxide 24 Anion Gap 8.0 BUN 21 H Creatinine 1.1 Estimated GFR (MDRD) 48 L Glucose 113 H Calcium 8.9 Total Bilirubin 0.4 AST 17 ALT 19 Alkaline Phosphatase 87 Total Protein 6.0 L Albumin 3.7 Globulin 2.3 Albumin/Globulin Ratio 1.6 PD Medical Decision Making - ED course Complexity details: reviewed results, re-evaluated patient, considered differential, d/w patient, d/w family ED course: No acute laboratory findings. The yellowing of the hands appears to be healing bruising. No evidence of jaundice. Informed the patient and her spouse that she will have increased bruising secondary to the blood thinners that she is on. No emergency medical condition at this time. Patient and family counseled regarding signs and symptoms for which I believe and urgent re-evaluation would be necessary. Patient with good understanding of and agreement to plan and is comfortable going home at this time This document was made in part using voice recognition software. While efforts are made to proofread this document, sound alike and grammatical errors may occur. Departure - Departure Disposition: 01 Home, Self Care Clinical Impression: Contusion of dorsum of hand Condition: Good Instructions: ED Contusion Hand Follow-Up: your,doctor in 1 week [Other] Comments: Your laboratory testing does not show any acute abnormalities today. Her bilirubin levels are normal. She appears to have slight bruising in the hands, likely from the blood thinners that she is on. Please follow-up with her doctor for any further care. Forms: PCP List Discharge Date/Time: 02/12/24 20:15
[2024-02-12 19:17] LABS: BASOPHILS % (AUTO) 0.5 %; EOSINOPHILS # (AUTO) 0.2 10^3/uL (0.0-0.7); EOSINOPHILS % (AUTO) 2.7 %; HCT - HEMATOCRIT 35.5 % (37.0-47.0); HGB - HEMOGLOBIN 11.2 g/dL (12.0-16.0); LYMPHOCYTES # (AUTO) 2.7 10^3/uL (1.5-3.5); LYMPHOCYTES % (AUTO) 31.1 %; MEAN CORPUSCULAR HEMOGLOBIN 28.4 pg (27.0-31.0); MEAN CORPUSCULAR HGB CONC 31.5 g/dL (32.0-36.0); MEAN CORPUSCULAR VOLUME 89.9 fL (81.0-99.0); MEAN PLATELET VOLUME 9.5 fL (7.9-10.8); MONOCYTES # (AUTO) 0.6 10^3/uL (0.0-1.0); MONOCYTES % (AUTO) 6.5 %; NEUTROPHILS # (AUTO) 5.1 10^3/uL (1.5-6.6); PLT - PLATELET COUNT 193 10^3/uL (130-450); RED BLOOD COUNT 3.95 10^6/uL (4.20-5.40); RED CELL DISTRIBUTION WIDTH 14.4 % (12.0-15.0); WHITE BLOOD COUNT 8.7 x10^3/uL (4.8-10.8)
[2024-02-12 19:25] LABS: PARTIAL THROMBOPLASTIN TIME 28.7 secs (24.9-33.3)
[2024-02-12 19:30] LABS: INR 1.1 (0.8-1.2); PT - PROTHROMBIN TIME 11.6 secs (9.9-12.6)
[2024-02-12 19:32] LABS: ALBUMIN 3.7 g/dL (3.2-5.5); ALBUMIN/GLOBULIN RATIO 1.6 (1.0-2.2); BILIRUBIN,TOTAL 0.4 mg/dL (0.2-1.0); CALCIUM 8.9 mg/dL (8.5-10.3); CREATININE 1.1 mg/dL (0.6-1.3); POTASSIUM 3.8 mmol/L (3.5-4.5)
[2024-02-12 20:24] VITALS: BP 150/63; O2SAT 98
== END 2024-02-12 20:15 | disposition home or self-care (01) ==
LOC: ED 18:06
DX: S60.222A Contusion of left hand, initial encounter (principal); S60.221A Contusion of right hand, initial encounter; X58.XXXA Exposure to other specified factors, initial encounter; Z79.899 Other long term (current) drug therapy
CPT/HCPCS: 36415; 80053; 85025; 85610; 85730; 99283

== ENCOUNTER 2024-03-16 10:54 | Outpatient (CLI) | payer MEDICARE, OTHER | END 2024-03-16 10:55 | disposition home or self-care (01) | LOC: RT 10:54 | PROVIDERS: ATTEND Physician Assistant | DX: R06.02 Shortness of breath (principal); R53.83 Other fatigue | CPT/HCPCS: 94010; 94727; 94729 ==

== ENCOUNTER 2024-03-25 08:45 | Emergency (ER) | payer MEDICARE, OTHER ==
[2024-03-25 09:31] LABS: BASOPHILS % (AUTO) 0.6 %; EOSINOPHILS # (AUTO) 0.2 10^3/uL (0.0-0.7); EOSINOPHILS % (AUTO) 2.2 %; HGB - HEMOGLOBIN 12.9 g/dL (12.0-16.0); LYMPHOCYTES # (AUTO) 2.1 10^3/uL (1.5-3.5); LYMPHOCYTES % (AUTO) 31.2 %; MEAN CORPUSCULAR HEMOGLOBIN 28.7 pg (27.0-31.0); MEAN CORPUSCULAR HGB CONC 32.3 g/dL (32.0-36.0); MEAN CORPUSCULAR VOLUME 88.9 fL (81.0-99.0); MEAN PLATELET VOLUME 9.4 fL (7.9-10.8); MONOCYTES # (AUTO) 0.4 10^3/uL (0.0-1.0); MONOCYTES % (AUTO) 5.8 %; NEUTROPHILS % (AUTO) 59.9 %; PLT - PLATELET COUNT 231 10^3/uL (130-450); RED CELL DISTRIBUTION WIDTH 12.9 % (12.0-15.0); WHITE BLOOD COUNT 6.7 x10^3/uL (4.8-10.8)
[2024-03-25 09:45] LABS: ALBUMIN 4.1 g/dL (3.2-5.5); ALBUMIN/GLOBULIN RATIO 1.5 (1.0-2.2); BILIRUBIN,TOTAL 0.6 mg/dL (0.2-1.0); CALCIUM 9.6 mg/dL (8.5-10.3); CREATININE 1.3 mg/dL (0.6-1.3); POTASSIUM 3.9 mmol/L (3.5-4.5); TOTAL PROTEIN 6.8 g/dL (6.4-8.9)
[2024-03-25 10:47] LABS: BILIRUBIN,URINE NEGATIVE (NEGATIVE); GLUCOSE, URINE (UA) NEGATIVE (NEGATIVE); KETONES,URINE (UA) NEGATIVE (NEGATIVE); LEUKOCYTE ESTERASE, URINE NEGATIVE (NEGATIVE); NITRITE,URINE NEGATIVE (NEGATIVE); OCCULT BLOOD,URINE NEGATIVE (NEGATIVE); PROTEIN,URINE NEGATIVE (NEGATIVE); UROBILINOGEN,URINE 0.2 (NORMAL) E.U./dL (NORMAL)
[2024-03-25 10:48] LABS: CLARITY,URINE CLEAR (CLEAR)
[2024-03-25] MEDS ORDERED: iohexoL-300 100 ML VIAL ONE (12:09)
--- NOTE | 2024-03-25 12:09 | ED Physician Documentation ---
PD HPI ABD PAIN - Stated complaint Stated Complaint: ABD PX - Chief complaint Chief Complaint: Abd Pain - History obtained from History obtained from: Patient, Family - Additional information Additional information: The patient comes to the emergency department chief complaint of low abdominal pain that started few days ago. She states that she has been having intermittent constipation and diarrhea. She was treated for an urinary tract infection in recent months, but denies any fevers or chills. No nausea or vomiting. She denies any dysuria. The patient states that she recently had to rehabilitate from a stroke and that her blood pressures have been running high since. Her states that the measurements have been between 160s and 180s systolic most of the time, with occasional drops into the 130s. The patient is on extended road lease metoprolol 50 mg daily and losartan 50 mg daily. They have amlodipine at an unknown dose for rescue. The patient denies any other complaints at this time. No chest pain or shortness of breath. 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 Cardiovascular: Coronary stent - Present Medications Home Medications: Ambulatory Orders Medication Instructions Recorded Confirmed Cholestyramine [Questran] 4 gm PO DAILY #0 12/31/23 03/25/24 Clopidogrel [Plavix] 75 mg PO DAILY tab 12/31/23 03/25/24 Losartan [Cozaar] 50 mg PO DAILY #0 12/31/23 03/25/24 Cefdinir 300 mg PO BID #20 cap 03/25/24 Metoprolol Succinate [Toprol Xl] 50 mg PO DAILY 03/25/24 03/25/24 - Allergies Allergies/Adverse Reactions: Allergies Allergy/AdvReac Type Severity Reaction Status Date / Time levothyroxine sodium Allergy Unknown Verified 03/25/24 09:11 Sulfa (Sulfonamide Allergy Hives Verified 03/25/24 09:11 Antibiotics) - Social History Does the pt smoke?: No Smoking Status: Never smoker Does the pt drink ETOH?: No Does the pt have substance abuse?: No - Immunizations Immunizations are current?: Yes - POLST Patient has POLST: No PD ED PE NORMAL - Vitals Vital signs reviewed: Yes - General General: Alert and oriented X 3, No acute distress, Well developed/nourished - HEENT HEENT: Atraumatic, EOMI, Moist mucous membranes - Neck Neck: Supple, no meningeal sign - Cardiac Cardiac: RRR, No murmur - Respiratory Respiratory: No respiratory distress, Clear bilaterally - Abdomen Abdomen: Soft, Non distended, Other ( bilateral lower quadrant tenderness, no rebound or guarding.) - Derm Derm: Normal color, Warm and dry, No rash - Extremities Extremities: No deformity, No edema - Neuro Neuro: Alert and oriented X 3 - Psych Psych: Normal mood, Normal affect Results - Vitals Vitals: Vital Signs - 24 hr 03/25/24 03/25/24 03/25/24 09:05 09:10 11:10 Temperature 36.0 C L Heart Rate 95 79 81 Respiratory 16 14 15 Rate Blood Pressure 151/82 H 205/97 H 205/84 H O2 Saturation 100 95 96 03/25/24 03/25/24 13:00 15:12 Temperature 36.2 C L Heart Rate 75 116 H Respiratory 14 18 Rate Blood Pressure 203/86 H 194/96 H O2 Saturation 96 95 Oxygen O2 Source Room air - Labs Labs: Laboratory Tests 03/25/24 03/25/24 03/25/24 09:27 09:27 10:40 WBC 6.7 RBC 4.50 Hgb 12.9 Hct 40.0 MCV 88.9 MCH 28.7 MCHC 32.3 RDW 12.9 Plt Count 231 MPV 9.4 Neut # (Auto) 4.0 Lymph # (Auto) 2.1 [place] # (Auto) 0.4 Eos # (Auto) 0.2 Baso # (Auto) 0.0 Absolute Nucleated RBC 0.00 Nucleated RBC % 0.0 Sodium 141 Potassium 3.9 Chloride 109 Carbon Dioxide 25 Anion Gap 7.0 BUN 16 Creatinine 1.3 Estimated GFR (MDRD) 39 L Glucose 105 H Calcium 9.6 Total Bilirubin 0.6 AST 20 ALT 21 Alkaline Phosphatase 109 Total Protein 6.8 Albumin 4.1 Globulin 2.7 Albumin/Globulin Ratio 1.5 Lipase 22 Urine Color YELLOW Urine Clarity CLEAR Urine pH 6.0 Ur Specific [place] 1.020 Urine Protein NEGATIVE Urine Glucose (UA) NEGATIVE Urine Ketones NEGATIVE Urine Occult Blood NEGATIVE Urine Nitrite NEGATIVE Urine Bilirubin NEGATIVE Urine Urobilinogen 0.2 (NORMAL) Ur Leukocyte Esterase NEGATIVE Ur Microscopic Review NOT INDICATED Urine Culture Comments NOT INDICATED PD Medical Decision Making - ED course Complexity details: reviewed results, re-evaluated patient, wilfredo benito, d/w patient, d/w family ED course: The patient was worked up with labs and urinalysis, all of which were unremarkable. She was sent for CT scan of the abdomen and pelvis, And which showed some thickening of the bladder wall which the radiologist noted was suspicious for cystitis. The CT other than that was largely unremarkable. The patient did have a prolonged episode of coarse shaking and stated she was not cold or anxious. Although the patient did not have any other evidence of infection, I was concerned about her lower abdominal pain, CT findings, and what seemed to be rigors. I have obtained blood cultures which are pending at this time. The patient was given a dose of Rocephin and was also given very small doses of Dilaudid and Valium for her shakes. Patient shake and calm down and she reported feeling better. She was a bit drowsy which did cause some desaturation while asleep, but this quickly resolved since patient was awake. She was easily arousable, and I did discuss the findings and the plan with the patient and her . I have advised them that if the blood cultures come back positive, they will be notified at home. The patient should have a low threshold for return to the emergency department and I have discussed this with the pt and her . Departure - Departure Disposition: 01 Home, Self Care Clinical Impression: Abdominal pain Qualifiers: Abdominal location: lower abdomen, unspecified Qualified Code(s): R10.30 - Lower abdominal pain, unspecified Condition: Stable Instructions: ED Abdominal Pain Female Non-Specific Abdominal Pain Prescriptions: Cefdinir 300 mg PO BID #20 cap Comments: Overall, your workup actually looks quite good today. Your blood pressure is running high but you do not have a fever and Heart rate is normal. Furthermore, you have a normal white blood cell count and your urine is completely normal. Your CT scan did show a thickened bladder wall which the radiologist felt was consistent with the appearance of inflammation of the bladder, usually from infection. Additionally, with your low abdominal discomfort and the shaking episode that you had here in the emergency department, still does raise concern for infection, perhaps from a urinary source but in your blood. As such we have obtained blood cultures and these are pending at this time. It is very unusual to have a normal urinalysis with an infectious inflammation of the bladder, but with the constellation of symptoms, it is best to be on the safe side. You have been given a dose of IV antibiotics here and a prescription for an antibiotic in the same category that can be taken orally has been electronically transmitted to the [facility] in [place]. You will be notified when the blood cultures come back if they are positive or if we need to see you again. If you are otherwise doing well, then there is no need to come back to the emergency department. You may follow-up with your primary care physician in that case. However, if you begin to feel like you are getting much worse, then you should return and be reevaluated. Forms: PCP List Discharge Date/Time: 03/25/24 14:58
[2024-03-25] MEDS: amLODIPine 5 MG TABLET PO STA (12:11)
--- NOTE | 2024-03-25 13:29 | CT Report ---
PROCEDURE: Abdomen/Pelvis W INDICATIONS: low abd pain, bilat CONTRAST: Omni 300 100ml TECHNIQUE: After the administration of intravenous contrast, a CT scan of the abdomen and pelvis was performed. Images were recorded and evaluated at appropriate window settings. Reformats: coronal and sagittal. F or radiation dose reduction, the following was used: automated exposure control, adjustment of mA and /or kV according to patient size. COMPARISON: No relevant comparisons available at time of dictation. FINDINGS: Image quality: Diagnostic. Lower chest: Mild scarring in the lung bases. Mild cardiomegaly. Liver: No solid mass. Gallbladder: Surgically absent. Biliary tree: No intrahepatic or extrahepatic dilation, accounting for age. Spleen: No splenomegaly. Pancreas: No pancreatic ductal dilation. Adrenals: No adrenal nodule. Kidneys and ureters: No hydronephrosis. No renal cystic lesion which requires follow up. No solid mas s. Juxtacortical defects of the left kidney, consistent with prior infection or vascular insult. Stomach, bowel and peritoneum: No gastric or small bowel dilation. No abnormal wall thickening. No pa thologic free fluid. Surgical changes at the ileocecal valve. Appendix not visualized. Colonic divert iculosis without evidence of diverticulitis. Lymph nodes: No central or retroperitoneal adenopathy. Vessels: No infrarenal aortic aneurysm. Patent portal vein. PELVIS Reproductive organs: Unremarkable. Bladder: Diffuse urinary bladder wall thickening. Pelvic lymph nodes: No pelvic adenopathy by size criteria. Bones: No aggressive osseous abnormality. Degenerative changes of the spine. Other: No significant ventral or inguinal hernia. IMPRESSION: Diffuse urinary bladder wall thickening, suggestive of cystitis. Colonic diverticulosis without evidence of diverticulitis. Reviewed by: Rommel Jordan MD on 03/25/2024 1:27 PM PDT Approved by: Rommel Jordan MD on 03/25/2024 1:27 PM PDT Station ID: [id number]
[2024-03-25] MEDS: diazePAM INJ 5 MG/ML SYRINGE IVP STA (14:01)
[2024-03-25] MEDS: HYDROmorphone 0.5 MG/0.5 ML SYRINGE IVP STA (14:02)
[2024-03-25] MEDS: cefTRIAXone 2 GM in SODIUM CHLORIDE 0.9% MINIBAG 100 ML IV STA (14:02)
[2024-03-25 15:19] VITALS: BP 194/96; O2SAT 95
[2024-03-25] MEDS: iohexoL-300 100 ML VIAL IVP ONE (17:23)
== END 2024-03-25 14:58 | disposition home or self-care (01) ==
LOC: ED 08:45
DX: R10.30 Lower abdominal pain, unspecified (principal); R93.89 Abnormal findings on diagnostic imaging of other specified body structures; R25.1 Tremor, unspecified; I10 Essential (primary) hypertension
CPT/HCPCS: 36415; 74177; 80053; 81003; 83690; 85025; 87040; 96365; 96375; 99284; A9270; J1170; Q9967; 81001; 85610; 87086

== ENCOUNTER 2024-05-24 18:24 | Inpatient (IN) | payer MEDICARE, OTHER ==
[2024-05-24] MEDS ORDERED: iohexoL-300 100 ML VIAL ONE (18:52)
--- NOTE | 2024-05-24 18:52 | ED Physician Documentation ---
History of Present Illness - Stated complaint Stated Complaint: HIGH BP - Chief complaint Chief Complaint: Cardiac - Additonal information Additional information: 79-year-old female with history of hypertension, [place], 3 CVAs, GERD, anxiety, nagy ic attacks presents emergency department for concerns of altered mental status as well as hypertension. Patient's is at bedside and is the only one is able to contribute to history. Patient's eyes are open but she is very lethargic not answering any questions. Her says around 530 she states that she was starting to not feel well she was still normal, walking talking without any difficulty she took her blood pressure and it was around 200 systolically her told her that she should go to the hospital but she said no she took hydralazine at home and then told her that she was starting to feel worse and her drove her to the emergency department. He says by the time that she arrived and during the drive here she was talking a lot less and now she is not talking at all and unable to ambulate aside from stand pivot from car to wheelchair and from wheelchair to bed. No recent medication changes per . 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 Cardiovascular: Coronary stent - Present Medications Home Medications: Ambulatory Orders Medication Instructions Recorded Confirmed Cholestyramine [Questran] 4 gm PO DAILY #0 12/31/23 05/25/24 Clopidogrel [Plavix] 75 mg PO DAILY tab 12/31/23 05/25/24 Losartan [Cozaar] 50 mg PO DAILY #0 12/31/23 05/25/24 Metoprolol Succinate [Toprol Xl] 25 mg PO DAILY 03/25/24 05/25/24 Hydralazine HCl 50 mg PO TID 05/25/24 05/25/24 - Allergies Allergies/Adverse Reactions: Allergies Allergy/AdvReac Type Severity Reaction Status Date / Time levothyroxine sodium Allergy Unknown Verified 05/24/24 18:27 Sulfa (Sulfonamide Allergy Hives Verified 05/24/24 18:27 Antibiotics) - Social History Does the pt smoke?: No Smoking Status: Never smoker Does the pt drink ETOH?: No Does the pt have substance abuse?: No - Immunizations Immunizations are current?: Yes - POLST Patient has POLST: No PD ED PE NORMAL - Vitals Vital signs reviewed: Yes - General General: Well developed/nourished, Other (lethargic, unable to answer questions) - HEENT HEENT: Atraumatic, PERRL, EOMI, Ears normal - Neck Neck: Supple, no meningeal sign - Cardiac Cardiac: RRR - Respiratory Respiratory: No respiratory distress - Abdomen Abdomen: Normal bowel sounds, Soft, Non tender, Non distended, No organomegaly - Back Back: No CVA TTP - Derm Derm: Normal color, Warm and dry, No rash - Extremities Extremities: No edema, No calf tenderness / cord PD ED PE EXPANDED - Neuro Neuro: Lethargic, Weakness, PERRL, Aphasia. No: Dyscongugate gaze, Nystagmus Results - Vitals Vitals: Oxygen O2 Source Room air - Labs Labs: Laboratory Tests 05/24/24 05/24/24 05/24/24 18:52 18:52 20:47 WBC 7.4 RBC 4.46 Hgb 12.9 Hct 39.4 MCV 88.3 MCH 28.9 MCHC 32.7 RDW 12.4 Plt Count 225 MPV 9.1 Neut # (Auto) 3.8 Lymph # (Auto) 2.8 Moffat # (Auto) 0.5 Eos # (Auto) 0.2 Baso # (Auto) 0.0 Absolute Nucleated RBC 0.00 Nucleated RBC % 0.0 Sodium 139 Potassium 3.9 Chloride 105 Carbon Dioxide 27 Anion Gap 7.0 BUN 19 Creatinine 1.2 Estimated GFR (MDRD) 43 L Glucose 99 Calcium 9.8 Magnesium 2.1 Total Bilirubin 0.4 AST 14 ALT 13 Alkaline Phosphatase 91 Troponin I High Sens 8.0 Total Protein 6.7 Albumin 4.1 Globulin 2.6 Albumin/Globulin Ratio 1.6 Urine Color YELLOW Urine Clarity CLEAR Urine pH 7.0 Ur Specific [place] 1.010 Urine Protein NEGATIVE Urine Glucose (UA) NEGATIVE Urine Ketones NEGATIVE Urine Occult Blood NEGATIVE Urine Nitrite NEGATIVE Urine Bilirubin NEGATIVE Urine Urobilinogen 0.2 (NORMAL) Ur Leukocyte Esterase NEGATIVE Ur Microscopic Review NOT INDICATED Urine Culture Comments NOT INDICATED - Rads (name of study) Angio head and neck Relevant Findings:: Final report received, EMP independent interpretation of test, Other (No CT arterial abnormalities in head or neck visualized) Head CT without Relevant Findings:: Final report received, EMP independent interpretation of test, Other (No acute intracranial abnormalities.) PD Medical Decision Making - ED course ED course: 79-year-old female presents emergency department for altered mental status. is at bedside is a very poor historian is very difficult to gather when patient's last known normal was. When the neurologist is able to communicate and speak with the via telemetry hospitalist says that her last known normal was possibly sometime this morning and for me he reports last known normal was around 5:30 PM. Initially patient was quite lethargic very weak she did not have any unilateral weakness no focal neurological deficits aside from very lethargic and unable to lift arms and legs off bed. She is able to follow commands with eyes and was able to turn her head from [id number] and was able to move all fingers and toes but with severe weakness. Eventually patient started to wake up a little bit more of starting to answer more questions for the telemetry stroke neurologist. Neurologist is not recommending TNK/tPA at this point in time given that we are having it very difficult time deciding when patient's last known normal was. Patient should be admitted for further observation and stroke workup as well as MRI tomorrow. I gave report to [facility] hospitalist who is graciously agreed to admit the patient. Departure - Departure Disposition: ED Place in Observation Clinical Impression: AMS (altered mental status) Discharge Date/Time: 05/24/24 21:43
[2024-05-24 18:56] LABS: BASOPHILS % (AUTO) 0.5 %; EOSINOPHILS # (AUTO) 0.2 10^3/uL (0.0-0.7); HCT - HEMATOCRIT 39.4 % (37.0-47.0); HGB - HEMOGLOBIN 12.9 g/dL (12.0-16.0); LYMPHOCYTES # (AUTO) 2.8 10^3/uL (1.5-3.5); LYMPHOCYTES % (AUTO) 37.3 %; MEAN CORPUSCULAR HEMOGLOBIN 28.9 pg (27.0-31.0); MEAN CORPUSCULAR HGB CONC 32.7 g/dL (32.0-36.0); MEAN CORPUSCULAR VOLUME 88.3 fL (81.0-99.0); MEAN PLATELET VOLUME 9.1 fL (7.9-10.8); MONOCYTES # (AUTO) 0.5 10^3/uL (0.0-1.0); MONOCYTES % (AUTO) 6.8 %; NEUTROPHILS # (AUTO) 3.8 10^3/uL (1.5-6.6); PLT - PLATELET COUNT 225 10^3/uL (130-450); RED BLOOD COUNT 4.46 10^6/uL (4.20-5.40); RED CELL DISTRIBUTION WIDTH 12.4 % (12.0-15.0); WHITE BLOOD COUNT 7.4 x10^3/uL (4.8-10.8)
[2024-05-24 19:11] LABS: MAGNESIUM 2.1 mg/dL (1.7-2.3)
[2024-05-24 19:17] LABS: ALBUMIN 4.1 g/dL (3.2-5.5); ALBUMIN/GLOBULIN RATIO 1.6 (1.0-2.2); BILIRUBIN,TOTAL 0.4 mg/dL (0.2-1.0); CALCIUM 9.8 mg/dL (8.5-10.3); CREATININE 1.2 mg/dL (0.6-1.3); POTASSIUM 3.9 mmol/L (3.5-4.5); TOTAL PROTEIN 6.7 g/dL (6.4-8.9)
--- NOTE | 2024-05-24 19:21 | CT Report ---
PROCEDURE: Head W/O Stroke Protocol INDICATIONS: AMS TECHNIQUE: Noncontrast 4.5 mm thick angled axial sections acquired from the foramen magnum to the vertex, with c oronal reformats. For radiation dose reduction, the following was used: automated exposure control, adjustment of mA and/or kV according to patient size. COMPARISON: CT head 12/28/2023, 11/22/2021. FINDINGS: Image quality: Diagnostic. CSF spaces: Basal cisterns are patent. No extra-axial fluid collections. Ventricles are normal in size and shape. Brain: No midline shift. No intracranial masses or hemorrhage. Huitron-white matter interface is norm al. Stable hypodensity in the left basal ganglia and thalamus. Mild periventricular and subcortical white matter hypodensities are stable, most consistent with chronic microvascular ischemic changes. Skull and face: Calvarium and visualized facial bones are intact, without suspicious lesions. Sinuses: Visualized sinuses and mastoids are clear. IMPRESSION: No acute intracranial pathology Findings were discussed with ordering ED provider on 05/24/2024 at 7:19 PM. This study fulfills neurological imaging criteria for inclusion or exclusion of acute stroke therapie s based on available published neurological imaging guidelines. Reviewed by: Pearl Mei MD, PhD on 05/24/2024 7:20 PM PDT Approved by: Pearl Mei MD, PhD on 05/24/2024 7:20 PM PDT Station ID: [id number]
--- NOTE | 2024-05-24 19:33 | CT Report ---
PROCEDURE: Angio Head/Neck INDICATIONS: AMS TECHNIQUE: After the administration of intravenous contrast, 1 mm thick sections acquired from the aortic arch t hrough the [place]. 3-dimensional phspdqo-aeumtksht-fqeznsywym (MIP) and/or volume renderin g reformats were acquired of the central intracranial vasculature and neck separately. For radiation dose reduction, the following was used: automated exposure control, adjustment of mA and/or kV acco rding to patient size. CONTRAST: 80ml [id number] COMPARISON: Same day CT head 05/24/2024, CT angiogram head neck 12/28/2023. FINDINGS: Image quality: Diagnostic. HEAD CT: CSF Spaces: Basal cisterns are patent. No extra-axial fluid collections. Ventricles are normal in size and shape. Brain: No significant abnormality is seen for scanning technique. These see separately dictated susi day CT head noncontrast performed concurrently. Skull and face: Calvarium and visualized facial bones appear intact, without suspicious lesions. Sinuses: Visualized sinuses and mastoids are clear. HEAD CT ANGIOGRAPHY: Anterior circulation: Intracranial internal carotid arteries are normal in size and flow. The flow within the paired anterior cerebral arteries is normal and symmetric. The flow within the middle cer ebral arteries is normal and symmetric. The anterior communicating artery is seen. No aneurysms are seen. Posterior circulation: There is again seen diminutive left V4 segment which terminates as the PICA. Remainder the visualized portions of the vertebral arteries demonstrate normal caliber. There is a no rmal appearing basilar artery. Flow within the posterior cerebral arteries is normal and symmetric. No aneurysms are seen. NECK CT ANGIOGRAPHY: Carotid system: The great vessels demonstrate a conventional anatomy as they arise from the aortic a [facility]. The origins of the common carotid arteries appear patent. The common carotid arteries demonstr ate normal caliber and courses. The right carotid bifurcation is widely patent. There is redemonstrat ion of atherosclerotic plaque involving the origin of the left internal carotid artery with approxima tely 40-50% stenosis. Remainder of the internal carotid arteries demonstrate normal calibers and cour ses. Posterior circulation: The origins of the vertebral arteries both appear widely patent. The more bonilla perior extracranial portions of both vertebral arteries also demonstrate normal courses and calibers. They join to form a normal appearing basilar artery. As before, right vertebral artery is dominant and left vertebral artery is diminutive. Soft tissues: Visualized neck soft tissues demonstrate no suspicious abnormalities. Bones: No suspicious bony lesions. Visualized cervical spine appears normally aligned. IMPRESSION: No significant intracranial arterial abnormality is seen. No significant abnormality is seen within the arteries of the neck. The estimate of stenosis included in the report of the imaging study was calculated using the NASCET method Reviewed by: Pearl Mei MD, PhD on 05/24/2024 7:32 PM PDT Approved by: Pearl Mei MD, PhD on 05/24/2024 7:32 PM PDT Station ID: [id number]
[2024-05-24] MEDS: LABETALOL 20 MG/4 ML SYRINGE IVP STA (19:42)
[2024-05-24] MEDS: iohexoL-300 100 ML VIAL IVP ONE (19:49)
[2024-05-24] MEDS: ACETAMINOPHEN 500 MG TABLET PO STA (20:30)
[2024-05-24 20:53] LABS: BILIRUBIN,URINE NEGATIVE (NEGATIVE); GLUCOSE, URINE (UA) NEGATIVE (NEGATIVE); KETONES,URINE (UA) NEGATIVE (NEGATIVE); LEUKOCYTE ESTERASE, URINE NEGATIVE (NEGATIVE); NITRITE,URINE NEGATIVE (NEGATIVE); OCCULT BLOOD,URINE NEGATIVE (NEGATIVE); PROTEIN,URINE NEGATIVE (NEGATIVE); UROBILINOGEN,URINE 0.2 (NORMAL) E.U./dL (NORMAL)
[2024-05-24 20:59] LABS: CLARITY,URINE CLEAR (CLEAR)
--- NOTE | 2024-05-24 21:18 | HISTORY & PHYSICAL EXAMINATION ---
Chief Complaint - Chief Complaint Chief Complaint: altered mental status History of Present Illness - Admitted From Admitted From:: home - History Obtained From Records Reviewed: yes History obtained from: patient, spouse, ER staff, chart review Exam Limitations: telemedicine - History of Present Illness HPI Comment/Other: Ms Blum is an 79 yo F with history of HTN, GERD, CAD, anxiety/panic attacks. Prior history of 3 CVAs (~10 years ago, then ~3 years ago, and most recent December 2023 L internal capsule infarct). Presents to the ER for further evaluation of elevated blood pressure and altered mental status. Upon arrival to ER patient was lethargic and unable to provide history. Per her last normal was ~530 pm, he then noticed that she complained of not feeling well, blood pressure was SBP 200s. She took hydralazine at home, eventually agreed to come to ER. In ER she underwent stroke work up, was evalu ated by stroke neurologist. CT/CTA head unremarkable. Recommended for admission and MRI. History is unclear, patient is drowsy but states that she started feeling unwell this morning, her noticed later in the evening. He also states that her current speech (noted expressive aphasia, word-finding difficulties) is her baseline. He also states that she was walking very slow today, which is also baseline? She has been having some vision issues since October when she had cataract surgery. Unclear which symptoms are new today... Denies fevers, chills, cough, dysuria, abd pain, n/v, cp, sob. 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 Cardiovascular: reports: Coronary stent - POLST Patient has POLST: No Meds/Allgy - Home Medications Home Medications: Ambulatory Orders Medication Instructions Recorded Confirmed Cholestyramine [Questran] 4 gm PO DAILY #0 12/31/23 03/25/24 Clopidogrel [Plavix] 75 mg PO DAILY tab 12/31/23 03/25/24 Losartan [Cozaar] 50 mg PO DAILY #0 12/31/23 03/25/24 Cefdinir 300 mg PO BID #20 cap 03/25/24 Metoprolol Succinate [Toprol Xl] 50 mg PO DAILY 03/25/24 03/25/24 - Allergies Allergies/Adverse Reactions: Allergies Allergy/AdvReac Type Severity Reaction Status Date / Time levothyroxine sodium Allergy Unknown Verified 05/24/24 18:27 Sulfa (Sulfonamide Allergy Hives Verified 05/24/24 18:27 Antibiotics) Review of Systems - Constitutional Constitutional: reports: Fatigue, Malaise, Weakness - Eyes Eyes: reports: Irritation (unchanged since cataract surgery in October) - Respiratory Respiratory: denies: Cough, Sputum production, SOB at rest - Gastrointestinal Gastrointestinal: denies: Abdominal pain, Constipation, Diarrhea, Nausea, Vomiting - Genitourinary Genitourinary: denies: Dysuria, Frequency - Integumentary Integumentary: denies: Rash, Pruritis - Neurological Neurological: reports: General weakness, Abnormal gait (at baseline (slow gait per patient's )), Slurred speech (+ expressive aphasia - baseline per her ). denies: Focal weakness, Headache, Dizziness - All Other Systems All Other Systems: reports: Reviewed and negative Exam - Vital Signs Reviewed Vital Signs: Yes Vital Signs: Vital Signs x48h Temp Pulse Resp BP Pulse Ox 05/24/24 21:00 88 24 179/73 H 95 05/24/24 20:42 85 16 209/88 H 96 05/24/24 20:26 74 18 211/97 H 95 05/24/24 20:10 84 23 199/80 H 05/24/24 19:57 82 22 198/83 H 99 05/24/24 19:48 80 26 H 186/80 H 97 05/24/24 19:47 79 18 229/86 H 95 05/24/24 19:30 83 28 H 223/89 H 95 05/24/24 19:22 76 23 229/86 H 95 05/24/24 19:12 231/79 H 05/24/24 19:02 78 22 230/88 H 99 05/24/24 18:27 36.5 C 82 16 200/95 H 100 - Physical Exam General Appearance: positive: No acute distress, Other (drowsy but briefly arouses) Eyes Bilateral: positive: Normal inspection Respiratory: positive: No respiratory distress Skin: positive: Color nml, No rash Neurologic/Psychiatric: positive: Slurred/abnml speech ((Baseline ?)). negative: Oriented x3 (oriented to self and place "Emergency", does not answer further questions), Weakness (no obvious focal deficits, limited exam via telemedicine, generalized weakness), Facial droop Conclusion/Plan - Lab Results Lab results reviewed: Yes Fish Bones: 05/24/24 18:52 05/24/24 18:52 - Diagnostic Imaging Results Diagnostic Imaging Results: positive: Final report reviewed - Other Other Results/Comments: Altered mental status Acute encephalopathy -Etiology is unclear, patient is drowsy but arousable -Per her this is her baseline ?? 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 Core Measures - Anticipated LOS I expect patient to be DC'd or transferred within 96 hours.: Yes - DVT/VTE - Prophylaxis VTE/DVT Device ordered at admit?: Yes - Stroke - Rehab Assessment Rehab services assessment to be ordered?: Yes Telemedicine Consult Details - Provider Location & Consult Time Telemedicine consultation conducted via videoconferencing?: Yes List names and roles of persons who participated in consult:: Dai ARRIAGA, patient and her spouse Telemedicine provider location:: [facility]
[2024-05-25] MEDS: SODIUM CHLORIDE FLUSH 0.9% 10 ML SYRINGE IVP PRN (01:15)
[2024-05-25] MEDS: SODIUM CHLORIDE FLUSH 0.9% 10 ML SYRINGE IVP SCH (01:15)
[2024-05-25] MEDS: ACETAMINOPHEN 325 MG TABLET PO PRN (01:22)
[2024-05-25] MEDS: CLOPIDOGREL 75 MG TABLET PO SCH (08:29)
[2024-05-25] MEDS: ENOXAPARIN 40 MG/0.4 ML SYRINGE SUBQ SCH (08:29)
--- NOTE | 2024-05-25 14:24 | PHARMACY PROGRESS NOTE ---
- Best Possible Medication History Admit Date and Time: 05/24/242120 Processed by: Pharmacy (Medication Reconciliation completed by Pre Kindergarten TeacherDiandra.) Medications reviewed in ED?: No Medication History completed: Yes Patient Interview: Completed Secondary Source(s): Spouse/Significant other (patient's spouse was not 100% sure on medications and dosing), Insurance records As the person ultimately responsible for medication therapy, providers are able to order a medication from an existing home medication list in [facility] via the "Reconcile Routine" prior to Confirmation of that medication by manager sales support. Such practice is discouraged except when the physician, in their clinical judgment, deems that a medical need exists for a medication without regard to previous use.
--- NOTE | 2024-05-25 14:46 | MRI Report ---
PROCEDURE: Brain WO INDICATIONS: altered mental status, r/o CVA TECHNIQUE: Noncontrast axial T1 spin echo, axial T2 fast spin echo, sagittal and axial FLAIR, coronal T2 fast sp in echo, axial gradient echo, axial diffusion and ADC through the brain. COMPARISON: CT head 05/24/2024. FINDINGS: Image quality: Excellent. CSF Spaces: Basal cisterns are patent. No extra-axial fluid collections. Ventricles are normal in size and shape. Brain: No intracranial masses or hemorrhage. Prominent perivascular spaces versus lacunar infarcts i n left basal ganglia. Encephalomalacia in the region of prior left basal ganglia infarct. Huitron/white matter interface is normal. Brainstem appears normal. Diffusion-weighted images demonstrate no acut e ischemic insult. No chronic ischemic insults. Normal intravascular flow voids are present. Skull and face: Calvarium has normal marrow signal. Bilateral lens replacements. The orbits are oth erwise normal in appearance. Sinuses: Mild diffuse paranasal sinus mucosal thickening. Small right mastoid effusion. IMPRESSION: 1.No acute or subacute infarct. No acute intracranial abnormalities. 2.Age-related global volume loss and chronic microvascular ischemic changes. 3.Old lacunar infarct in the left basal ganglia. Reviewed by: Alan Martinez MD on 05/25/2024 2:44 PM PDT Approved by: Alan Martinez MD on 05/25/2024 2:44 PM PDT Station ID: [id number]
[2024-05-25] MEDS: LOSARTAN 50 MG TABLET PO SCH (16:36)
[2024-05-25] MEDS: METOPROLOL SUCCINATE 50 MG TABLET PO SCH (16:36)
--- NOTE | 2024-05-25 16:49 | PROVIDER PROGRESS NOTE ---
Subjective - Prog Note Date Prog Note Date: 05/25/24 Prog Note Time: 16:47 - Subjective Pt reports feeling: Improved Subjective: No acute events overnight. Patient does report that she has a mild diffuse headache that is stable from before. She is oriented to place, date, year but not to situation. Denies any chest pain, cough, shortness of breath, nausea, vomiting or new neurologic deficit. Objective - Vital Signs/Intake & Output Reviewed Vital Signs: Yes Vital Signs: Vital Signs x48h Temp Pulse Resp BP Pulse Ox 05/25/24 12:19 36.4 C L 87 16 210/126 H 97 Intake & Output: Intake & Output 05/22/24 05/23/24 05/24/24 05/25/24 23:59 23:59 23:59 23:59 Intake Total 0 200 Output Total 250 900 Balance -250 -700 - Objective General Appearance: positive: No acute distress, Alert Eyes Bilateral: positive: Normal inspection, PERRL, EOMI ENT: positive: ENT inspection nml, Pharynx nml, No signs of dehydration Neck: positive: Nml inspection, Thyroid nml, No JVD, Trachea midline Respiratory: positive: Chest non-tender, No respiratory distress, Breath sounds nml. negative: Wheezes, Rales, Rhonchi Cardiovascular: positive: Regular rate & rhythm, No murmur, No gallop Peripheral Pulses: 2+ Dorsalis pedis (R), 2+ Dorsalis pedis (L) Abdomen: positive: Non-tender, No organomegaly, Nml bowel sounds, No distention Back: positive: Nml inspection Skin: positive: Color nml, No rash, Warm, Dry Extremities: positive: Non-tender, Full ROM, Nml appearance Neurologic/Psychiatric: positive: Other (Alert and oriented x 3. Strength 4+ out of 5 in the RUE and 5 out of 5 in LUE. Strength 3+ to 4 out of 5 in RLE and 5 out of 5 in LLE. Downgoing Babinski on left and equivocal response to Babinski testing on right. Mild expressive aphasia noted. Otherwise CN II-XII intact.) - Lab Results Fish Bones: 05/24/24 18:52 05/24/24 18:52 Other Labs: Lab Results x24hrs 05/24/24 05/24/24 05/24/24 Range/Units 20:47 18:52 18:52 WBC 7.4 (4.8-10.8) x10^3/uL RBC 4.46 (4.20-5.40) 10^6/uL Hgb 12.9 (12.0-16.0) g/dL Hct 39.4 (37.0-47.0) % MCV 88.3 (81.0-99.0) fL MCH 28.9 (27.0-31.0) pg MCHC 32.7 (32.0-36.0) g/dL RDW 12.4 (12.0-15.0) % Plt Count 225 (130-450) 10^3/uL MPV 9.1 (7.9-10.8) fL Neut # (Auto) 3.8 (1.5-6.6) 10^3/uL Lymph # (Auto) 2.8 (1.5-3.5) 10^3/uL [place] # (Auto) 0.5 (0.0-1.0) 10^3/uL Eos # (Auto) 0.2 (0.0-0.7) 10^3/uL Baso # (Auto) 0.0 (0.0-0.1) 10^3/uL Absolute Nucleated RBC 0.00 x10^3/uL Nucleated RBC % 0.0 /100WBC Sodium 139 (135-145) mmol/L Potassium 3.9 (3.5-4.5) mmol/L Chloride 105 (101-111) mmol/L Carbon Dioxide 27 (21-32) mmol/L Anion Gap 7.0 (6-13) BUN 19 (6-20) mg/dL Creatinine 1.2 (0.6-1.3) mg/dL Estimated GFR (MDRD) 43 L (>89) Glucose 99 (74-104) mg/dL Calcium 9.8 (8.5-10.3) mg/dL Magnesium 2.1 (1.7-2.3) mg/dL Total Bilirubin 0.4 (0.2-1.0) mg/dL AST 14 (10-42) IU/L ALT 13 (10-60) IU/L Alkaline Phosphatase 91 (42-121) IU/L Troponin I High Sens 8.0 (2.3-14.8) ng/L Total Protein 6.7 (6.4-8.9) g/dL Albumin 4.1 (3.2-5.5) g/dL Globulin 2.6 (2.1-4.2) g/dL Albumin/Globulin Ratio 1.6 (1.0-2.2) Urine Color YELLOW Urine Clarity CLEAR (CLEAR) Urine pH 7.0 (5.0-7.5) PH Ur Specific Distant 1.010 (1.002-1.030) Urine Protein NEGATIVE (NEGATIVE) mg/dL Urine Glucose (UA) NEGATIVE (NEGATIVE) mg/dL Urine Ketones NEGATIVE (NEGATIVE) mg/dL Urine Occult Blood NEGATIVE (NEGATIVE) Urine Nitrite NEGATIVE (NEGATIVE) Urine Bilirubin NEGATIVE (NEGATIVE) Urine Urobilinogen 0.2 (NORMAL) (NORMAL) E.U./dL Ur Leukocyte Esterase NEGATIVE (NEGATIVE) Ur Microscopic Review NOT INDICATED Urine Culture Comments NOT INDICATED Sepsis Event Note (H) - Evaluation Current Stage of Sepsis: Ruled out Assessment/Plan - Problem List (1) AMS (altered mental status) Impression: She presented with possible confusion and disorientation, however is unclear as the patient and her are fairly poor historians though the indicates that her baseline is slow to respond and some expressive aphasia which is similar to how she is currently. She did reportedly have a similar presentation earlier this year though in which she was noted to have an acute CVA. Her urinalysis is negative and there is no obvious infectious source elsewhere. -CT head and CTA head and neck were negative for acute issues in the ER. -She was placed in the hospital for brain MRI and further neurologic testing. -MRI of the brain showed no acute CVA or other acute pathology. -It is possible that she had mild hypertensive encephalopathy as she did have elevated blood pressure at presentation. -Will resume blood pressure medications at this time and try to keep blood pressure less than 180 systolic. -Check TSH, B12, folate. -If further workup and management is unremarkable then possibly discharge tomorrow. (2) Hypertension not at goal Impression: Was noted to have significant hypertension at home with systolic blood pressure greater than 200. Since being hospitalized she ranges from 160-200. -As her brain MRI is negative, we do not have to allow permissive hypertension at this time. -Will resume oral losartan 50 mg and metoprolol XL 50 mg. -Goal BP is less than 160-180. Can titrate further tomorrow. (3) History of CVA (cerebrovascular accident) Impression: Has had multiple CVAs with her first 10 years ago then about 3 years ago and most recently in December 2023 with a left internal capsule infarct. -Continue home clopidogrel 75 mg. -Added statin. Will check lipid panel. (4) CAD (coronary artery disease) Impression: She is status post PCI about 10 years ago though I am uncertain of the exact clinical details. -Continue home clopidogrel 75 mg as noted above and add statin as well. -Resume home metoprolol XL as noted above as well.
[2024-05-25] MEDS: ATORVASTATIN 40 MG TABLET PO SCH (21:27)
[2024-05-25] MEDS: LABETALOL 20 MG/4 ML SYRINGE IVP PRN (21:32)
[2024-05-26 05:47] LABS: BASOPHILS # (AUTO) 0.1 10^3/uL (0.0-0.1); BASOPHILS % (AUTO) 0.8 %; EOSINOPHILS # (AUTO) 0.2 10^3/uL (0.0-0.7); EOSINOPHILS % (AUTO) 2.9 %; HCT - HEMATOCRIT 37.7 % (37.0-47.0); HGB - HEMOGLOBIN 12.1 g/dL (12.0-16.0); LYMPHOCYTES # (AUTO) 1.9 10^3/uL (1.5-3.5); LYMPHOCYTES % (AUTO) 30.3 %; MEAN CORPUSCULAR HEMOGLOBIN 28.5 pg (27.0-31.0); MEAN CORPUSCULAR HGB CONC 32.1 g/dL (32.0-36.0); MEAN CORPUSCULAR VOLUME 88.9 fL (81.0-99.0); MEAN PLATELET VOLUME 9.5 fL (7.9-10.8); MONOCYTES # (AUTO) 0.4 10^3/uL (0.0-1.0); MONOCYTES % (AUTO) 6.7 %; NEUTROPHILS # (AUTO) 3.7 10^3/uL (1.5-6.6); PLT - PLATELET COUNT 236 10^3/uL (130-450); RED BLOOD COUNT 4.24 10^6/uL (4.20-5.40); RED CELL DISTRIBUTION WIDTH 12.4 % (12.0-15.0); WHITE BLOOD COUNT 6.3 x10^3/uL (4.8-10.8)
[2024-05-26 06:01] LABS: BUN - BLOOD UREA NITROGEN 15 mg/dL (6-20); CALCIUM 9.3 mg/dL (8.5-10.3); CARBON DIOXIDE - CO2 24 mmol/L (21-32); CHLORIDE 108 mmol/L (101-111); CHOL/HDL RATIO 4.6 (<4.4); CHOLESTEROL 201 mg/dL; CREATININE 1.1 mg/dL (0.6-1.3); GFR - MDRD 48 (>89); GLUCOSE 92 mg/dL (74-104); HDL CHOLESTEROL 44 mg/dL; LDL CHOLESTEROL,CALCULATED 122 mg/dL; LDL/HDL RATIO 2.8 (<4.4); POTASSIUM 3.8 mmol/L (3.5-4.5); SODIUM 140 mmol/L (135-145); TRIGLYCERIDES 174 mg/dL; VLDL CHOLESTEROL 35 mg/dL
[2024-05-26 06:19] LABS: THYROID STIMULATING HORMONE 6.09 uIU/mL (0.34-5.60)
[2024-05-26] MEDS: polyethylene glycoL 3350 17 GM PACKET PO SCH (08:28)
--- NOTE | 2024-05-26 08:30 | PROVIDER PROGRESS NOTE ---
Subjective - Prog Note Date Prog Note Date: 05/26/24 Prog Note Time: 08:28 - Subjective Pt reports feeling: Improved Subjective: No acute events overnight. Her brain MRI yesterday returned normal and overall she is improved today. She indicates that she feels better and she is currently more interactive and appropriate during the interview compared to yesterday. She does report an ongoing headache that is frontal and on the top of her head. She denies any focal neurologic deficit that is different than baseline, though she does note problems with her speech at times and right-sided weakness that are chronic. Objective - Vital Signs/Intake & Output Reviewed Vital Signs: Yes Vital Signs: Vital Signs x48h Temp Pulse Resp BP Pulse Ox 05/26/24 08:03 36.4 C L 77 16 178/107 H 96 05/26/24 05:15 36.4 C L 75 16 189/100 H 95 Intake & Output: Intake & Output 05/23/24 05/24/24 05/25/24 05/26/24 23:59 23:59 23:59 23:59 Intake Total 0 890 Output Total 250 1700 Balance -250 -810 - Objective General Appearance: positive: No acute distress, Alert Eyes Bilateral: positive: Normal inspection, PERRL, EOMI ENT: positive: ENT inspection nml, Pharynx nml, No signs of dehydration Neck: positive: Nml inspection, Thyroid nml, No JVD, Trachea midline Respiratory: positive: Chest non-tender, No respiratory distress, Breath sounds nml. negative: Wheezes, Rales, Rhonchi Cardiovascular: positive: Regular rate & rhythm, No murmur, No gallop. negative: JVD present Peripheral Pulses: 2+ Dorsalis pedis (R), 2+ Dorsalis pedis (L) Abdomen: positive: Non-tender, No organomegaly, Nml bowel sounds, No distention Skin: positive: Color nml, No rash, Warm, Dry Extremities: positive: Non-tender, Nml appearance, No pedal edema Neurologic/Psychiatric: positive: Oriented x3, CN's nml (2-12), Other (4+ out of 5 strength in right upper extremity and 3+ to 3 out of 5 strength in right lower extremity. Remaining extremities are 5 out of 5 strength. She is more alert and interactive today compared to yesterday.) - Lab Results Fish Bones: 05/26/24 05:12 05/26/24 05:12 Other Labs: Lab Results x24hrs 05/26/24 05/26/24 05/26/24 Range/Units 05:12 05:12 05:12 WBC 6.3 (4.8-10.8) x10^3/uL RBC 4.24 (4.20-5.40) 10^6/uL Hgb 12.1 (12.0-16.0) g/dL Hct 37.7 (37.0-47.0) % MCV 88.9 (81.0-99.0) fL MCH 28.5 (27.0-31.0) pg MCHC 32.1 (32.0-36.0) g/dL RDW 12.4 (12.0-15.0) % Plt Count 236 (130-450) 10^3/uL MPV 9.5 (7.9-10.8) fL Neut # (Auto) 3.7 (1.5-6.6) 10^3/uL Lymph # (Auto) 1.9 (1.5-3.5) 10^3/uL [place] # (Auto) 0.4 (0.0-1.0) 10^3/uL Eos # (Auto) 0.2 (0.0-0.7) 10^3/uL Baso # (Auto) 0.1 (0.0-0.1) 10^3/uL Absolute Nucleated RBC 0.00 x10^3/uL Nucleated RBC % 0.0 /100WBC Sodium 140 (135-145) mmol/L Potassium 3.8 (3.5-4.5) mmol/L Chloride 108 (101-111) mmol/L Carbon Dioxide 24 (21-32) mmol/L Anion Gap 8.0 (6-13) BUN 15 (6-20) mg/dL Creatinine 1.1 (0.6-1.3) mg/dL Estimated GFR (MDRD) 48 L (>89) Glucose 92 (74-104) mg/dL Calcium 9.3 (8.5-10.3) mg/dL Triglycerides 174 mg/dL Cholesterol 201 H ( - 200) mg/dL LDL Cholesterol, Calc 122 ( - 129) mg/dL VLDL Cholesterol 35 mg/dL HDL Cholesterol 44 L (60 - ) mg/dL LDL/HDL Ratio 2.8 (<4.4) Cholesterol/HDL Ratio 4.6 (<4.4) Vitamin B12 454 (180-914) pg/mL Folate 7.9 (5.90 - >24.8) ng/mL TSH 6.09 H (0.34-5.60) uIU/mL Sepsis Event Note (H) - Evaluation Current Stage of Sepsis: Ruled out Assessment/Plan - Problem List (1) AMS (altered mental status) Impression: She presented with confusion and disorientation, however is unclear as the patient and her are fairly poor historians though the indicates that her baseline is slow to respond and some expressive aphasia which is similar to how she was at presentation. She did reportedly have a similar pres entation earlier this year though in which she was noted to have an acute CVA. Her urinalysis is negative and there is no obvious infectious source elsewhere. Since admission, she has improved with more appropriate interaction during interview and she does not have as slow of a response rate. Her brain MRI is negative for acute CVA. Overall, it is likely that her AMS was secondary to hypertensive encephalopathy. -CT head and CTA head and neck were negative for acute issues in the ER. -Brain MRI negative for acute process. -TSH, B12 normal. -Treat hypertension as noted below. -Overall mentation appears to be back to her baseline today. (2) Hypertension not at goal Impression: Was noted to have significant hypertension at home with systolic blood pressure greater than 200. Since being hospitalized she ranges from 160-200, but overnight she was more consistently 180-200/100 despite resuming her home Losartan 50 mg and Metoprolol XL 50 mg. -Continue home Metoprolol XL 50 mg. Increase Losartan to 100 mg daily. -Add Amlodipine 10 mg. -PRN IV Labetalol. -If her BP does not improve by the afternoon, can adjust medications further. -Will monitor in the hospital another day in order to have more appropriate BP control as her presentation was likely hypertensive encephalopathy. (3) History of CVA (cerebrovascular accident) Impression: Has had multiple CVAs with her first 10 years ago then about 3 years ago and most recently in December 2023 with a left internal capsule infarct. -Continue home clopidogrel 75 mg. -Atorvastatin 80 mg was added on admission when CVA was a possibility. Her LDL is 122 with total cholesterol 201. Will decrease Atorvastatin to 40 mg. (4) CAD (coronary artery disease) Impression: She is status post PCI about 10 years ago though I am uncertain of the exact clinical details. -Continue home clopidogrel 75 mg, Metoprolol XL 50 mg and added Atorvastatin as noted above. -No acute issues noted at this time.
[2024-05-26] MEDS: LOSARTAN 50 MG TABLET PO SCH (08:31)
[2024-05-26] MEDS: amLODIPine 5 MG TABLET PO SCH (08:31)
[2024-05-26] MEDS: SENNA 8.6 MG TABLET PO SCH (08:31)
[2024-05-26] MEDS: DOCUSATE SODIUM 250 MG CAPSULE PO SCH (08:31)
[2024-05-26] MEDS ORDERED: ONDANSETRON ODT 4 MG TABLET TL PRN (10:35)
[2024-05-26] MEDS: ONDANSETRON 4 MG/2 ML VIAL IVP PRN (11:41)
[2024-05-26] MEDS: ATORVASTATIN 40 MG TABLET PO SCH (20:17)
[2024-05-27 06:10] LABS: BASOPHILS % (AUTO) 0.6 %; EOSINOPHILS # (AUTO) 0.2 10^3/uL (0.0-0.7); EOSINOPHILS % (AUTO) 3.2 %; LYMPHOCYTES # (AUTO) 2.1 10^3/uL (1.5-3.5); LYMPHOCYTES % (AUTO) 30.1 %; MEAN CORPUSCULAR HEMOGLOBIN 28.3 pg (27.0-31.0); MEAN CORPUSCULAR HGB CONC 30.8 g/dL (32.0-36.0); MEAN PLATELET VOLUME 9.5 fL (7.9-10.8); MONOCYTES # (AUTO) 0.5 10^3/uL (0.0-1.0); MONOCYTES % (AUTO) 6.7 %; NEUTROPHILS # (AUTO) 4.1 10^3/uL (1.5-6.6); NEUTROPHILS % (AUTO) 59.1 %; PLT - PLATELET COUNT 222 10^3/uL (130-450); RED BLOOD COUNT 4.24 10^6/uL (4.20-5.40); RED CELL DISTRIBUTION WIDTH 12.4 % (12.0-15.0)
[2024-05-27 06:29] LABS: CALCIUM 9.2 mg/dL (8.5-10.3); CREATININE 1.3 mg/dL (0.6-1.3); POTASSIUM 4.1 mmol/L (3.5-4.5)
[2024-05-27 08:00] VITALS: O2SAT 93
[2024-05-27] MEDS: METOPROLOL SUCCINATE 50 MG TABLET PO SCH (08:06)
--- NOTE | 2024-05-27 12:56 | Discharge Plan ---
Discharge Plan Problem Reviewed?: Yes Disposition: 06 Home Health Service Condition: Stable Prescriptions: Losartan [Cozaar] 100 mg PO DAILY 30 Days #60 tab Atorvastatin [Lipitor] 40 mg PO QPM 30 Days #30 tab amLODIPine [Norvasc] 5 mg PO QPM 30 Days #30 tab Metoprolol Succinate [Toprol Xl] 100 mg PO DAILY 30 Days #60 tab Diet: Cardiac Activity Restrictions: Activity as Tolerated Shower Restrictions: No Assistance Devices: Walker Weight Bearing: Full Weight Health Concerns: You presented to the hospital after your felt that you appeared more confused than baseline and given your history of several strokes in the past, you were placed in the hospital to further evaluate for underlying stroke or other causes. You are noted to be significantly hypertensive, with a blood pressure over 200 systolic, whereas we ideally would like your blood pressure to be less than 130 [address] You had a [address] scan of your head that showed no new changes and a CT of your head/neck with IV contrast that showed no blood clot in the arteries supplying your brain. An MRI of your brain was obtained that confirmed that you DID NOT have a stroke. Your blood pressure remained significantly elevated while in the hospital and it was ultimately felt that you had what is called "hypertensive encephalopathy", which is confusion that is caused by too high of a blood pressure. We resumed your home losartan 50 mg and metoprolol succinate 50 mg to treat your blood pressure however your blood pressure remained elevated. We added a third medication called amlodipine and increased your home medications with appropriate control of your blood pressure. Please see below for your medication list and updated doses. We are hoping to establish home health care, who will come to your home and provide physical therapy to improve your strength and decrease the likelihood of you falling. Someone will also help to manage her medications and ensure that you are taking them appropriately. If at any point in the near future you develop worsening confusion, worsening weakness, drooping of your face, slurring of your speech, rapid change in vision, chest pain, shortness of breath, dizziness or passing out, please seek immediate medical attention. Plan of Treatment: NEW MEDICATIONS: 1. Amlodipine 5 mg - take one tablet by mouth in the evening, starting 05/28/24. This is to treat your high blood pressure. 2. Atorvastatin 40 mg - take one tablet by mouth in the evening. This is to treat high cholesterol. CHANGED MEDICATIONS: 1. Metoprolol Succinate (Toprol XL) - dose increased to 100 mg daily. You were given a new prescription for 50 mg tablets. Please take two tablets by mouth once daily (in the morning). This is to treat your high blood pressure. 2. Losartan - dose increased to 100 mg daily. You were given a new prescription for 50 mg tablets. Please take two tablet by mouth once daily (in the morning). This is to treat your high blood pressure. DISCONTINUED MEDICATIONS: 1. Hydralazine - you used to be on this medication for high blood pressure. Please discontinue this medication (DO NOT TAKE THIS WHEN YOU GO HOME). Additional Instructions or Follow Up instructions: Please be sure to follow up with you PCP within 1 week of your hospitalization to review your symptoms, BP and medications. If you don't already have a BP cuff/monitor, please purchase one from your local pharmacy. Please check your BP once in the morning and once at night, then write those numbers down on a notepad. Please take this piece of paper with you to your PCP hospital follow up appointment. No Smoking: If you smoke, Please STOP! Call for help. Follow-up with: Arnie Carrillo MD [Provider Admit Priv/Credential] -
[2024-05-27 13:13] VITALS: BP 148/68
--- NOTE | 2024-05-27 13:27 | DISCHARGE SUMMARY ---
Discharge Summary Admit Date: 05/24/24 Discharge Date: 05/27/24 Discharging Provider: Art Birmingham MD Primary Care Provider: Arnie Carrillo MD Condition at Discharge: Stable Discharge Disposition: Home Health Service - DIAGNOSES Admission Diagnoses: Acute Metabolic Encephalopathy Discharge Diagnoses with Status of Each Condition: 1. Hypertensive Encephalopathy - resolved 2. Hypertensive Urgency - resolved 3. Essential Hypertension - improved 4. Hyperlipidemia - stable 5. History of CVA with Residual Right Hemiparesis - stable 6. CAD with History of PCI - stable - HPI History of Present Illness: Ms Blum is an 79 yo F with history of HTN, GERD, CAD s/p PCI, anxiety/panic attacks. She has a prior history of 3 CVAs (~10 years ago, then ~3 years ago, and most recent December 2023 L internal capsule infarct leaving her with chronic right sided weakness). Presents to the ER for further evaluation of elevated blood pressure and altered mental status. Upon arrival to ER patient was lethargic and unable to provide history. Per her last normal was ~530 pm, he then noticed that she complained of not feeling well, blood pressure was SBP 200s. She took hydralazine at home, eventually agreed to come to ER. In ER she underwent stroke work up, was evaluated by stroke neurologist. CT/CTA head unremarkable. Recommended for admission and MRI. History is unclear, patient is drowsy but states that she started feeling unwell this morning, her noticed later in the evening. He also states that her current speech (noted expressive aphasia, word-finding difficulties) is her baseline. He also states that she was walking very slow today, which is also baseline? She has been having some vision issues since October when she had cataract surgery. Unclear which symptoms are new today. Denies fevers, chills, cough, dysuria, abd pain, n/v, cp, sob. She was admitted to the hospital to evaluate for possible underlying CVA and to treat her blood pressure. - CONSULTS | PROCEDURES Consultations: None - HOSPITAL COURSE Hospital Course: After admission to the hospital she did remain slow to respond, confused and having expressive aphasia. She did have right-sided weakness, which was more prominent in her right leg, though her indicated that this appeared to be her baseline level of weakness. Her CT head and CTA head/neck in the emergency department were negative for any acute pathology, intracranial stenosis or large vessel occlusion. A brain MRI was ordered and while that was pending, permissive hypertension was allowed with her blood pressure ranging in the 180-200 systolic range. Her home clopidogrel 75 mg was resumed and atorvastatin 80 mg was added in the event she had an underlying acute CVA. Her brain MRI ultimately resulted with no acute pathology and it was felt that her presentation was more consistent with hypertensive encephalopathy. Her urinalysis was negative and she had no obvious infectious source, with her TSH, B12, folate all being unremarkable. Her home losartan 50 mg and metoprolol XL 50 mg was resumed however this was inadequate to control her blood pressure. Ultimately amlodipine 5 mg, losartan 100 mg and metoprolol XL 100 mg seemed to adequately controlled her blood pressure, with systolic blood pressures ranging in the 130-150 range. Her home hydralazine was discontinued as it appeared that she had difficulty taking this medication 3 times a day and it is unclear whether she was taking her losartan and/or metoprolol consistently as well. With improvement in her blood pressure, her mentation improved back to her baseline. She was alert and oriented, without any difficulty expressing her wishes aside from occasional expressive aphasia which is her baseline. Her right sided deficits, as noted above, were baseline for her and she was ambu latory with a walker and occasionally was able to ambulate by "furniture surfing", showing no signs of instability while hospitalized. She may have baseline mild cognitive deficits, but this can be explored as an outpatient with more thorough cognitive testing. A lipid panel was checked which indicated her total cholesterol was 201 with an LDL of 122 and HDL of 44. Her triglycerides were 174. She was not previously on a statin, thus her atorvastatin was decreased to 40 mg and she was provided a new prescription for this. She was given all new prescriptions for losartan and metoprolol succinate in addition to amlodipine as well. She is being set up with home health care with home PT/OT and nursing to assist with medication management. She was advised to monitor her blood pressure at home and develop a blood pressure log with morning and evening BP readings documented so she could take this to her hospital follow-up visit. NEW MEDICATIONS: 1. Amlodipine 5 mg qPM 2. Atorvastatin 40 mg qPM CHANGED MEDICATIONS: 1. Metoprolol Succinate 100 mg daily - dose increased from 50 to 100 mg daily. Prescription was sent for 50 mg tablets, with instructions to take two tablets. 2. Losartan - dose increased from 50 to 100 mg daily. Prescription was sent for 50 mg tablets, with instructions to take two tablets. DISCONTINUED MEDICATIONS: 1. Hydralazine - this was discontinued as she may not have been able to take this three times daily as prescribed. - ALLERGIES Allergies/Adverse Reactions: Allergies Allergy/AdvReac Type Severity Reaction Status Date / Time levothyroxine sodium Allergy Unknown Verified 05/24/24 18:27 Sulfa (Sulfonamide Allergy Hives Verified 05/24/24 18:27 Antibiotics) - MEDICATIONS Home Medications: Ambulatory Orders Medication Instructions Recorded Confirmed Cholestyramine [Questran] 4 gm PO DAILY #0 12/31/23 05/25/24 Clopidogrel [Plavix] 75 mg PO DAILY tab 12/31/23 05/25/24 Atorvastatin [Lipitor] 40 mg PO QPM 30 Days #30 tab 05/27/24 Losartan [Cozaar] 100 mg PO DAILY 30 Days #60 tab 05/27/24 Metoprolol Succinate [Toprol Xl] 100 mg PO DAILY 30 Days #60 tab 05/27/24 amLODIPine [Norvasc] 5 mg PO QPM 30 Days #30 tab 05/27/24 - PHYSICAL EXAM AT DISCHARGE General Appearance: positive: No acute distress, Alert, Mild distress Eyes Bilateral: positive: Normal inspection, PERRL, EOMI ENT: positive: ENT inspection nml, Pharynx nml, No signs of dehydration Neck: positive: Nml inspection, Thyroid nml, No JVD, Trachea midline Respiratory: positive: Chest non-tender, No respiratory distress, Breath sounds nml. negative: Wheezes, Rales, Rhonchi Cardiovascular: positive: Regular rate & rhythm, No murmur, No gallop Peripheral Pulses: positive: 2+ Abdomen: positive: Non-tender, No organomegaly, Nml bowel sounds, No distention Back: positive: Nml inspection Skin: positive: Color nml, No rash, Warm, Dry Extremities: positive: Nml appearance, No pedal edema Neurologic/Psychiatric: positive: Other (Alert and oriented x3, sensation intact bilaterally, right arm 4+/5 and right leg 3+ to 4/5 strength. Both left e xtremities 5/5 strength. Face is symmetric, speech mildly dysarthric and slowed. EOMI, PERRL.) - LABS Result Diagrams: 05/27/24 05:33 05/27/24 05:33 - DIAGNOSTIC IMAGING Diagnostic Imaging Results: Final report reviewed Diagnostic Imaging Results Comments: CT Head (05/24/24): No acute intracranial pathology. CTA Head/Neck (05/24/24): 1. No significant intracranial arterial abnormality seen. 2. No significant abnormality is seen within the arteries of the neck. MRI Brain (05/25/24): 1. No acute or subacute infarct. No acute intracranial abnormalities. 2. Age-related global volume loss and chronic microvascular ischemic changes. 3. Old lacunar infarct in the left basal ganglia. - SEPSIS Current Stage of Sepsis: Ruled out - FOLLOW UP Follow Up: Encouraged to follow up with Dr. Arnie Carrillo MD (PCP) within 1 week for hospital follow up. - TIME SPENT Time Spent in Discharge (Minutes): 40
== END 2024-05-27 14:14 | disposition home health service (06) | DRG 78 ==
LOC: ED 18:24 → MS2 21:21 → OBSVTOIN 05-25 10:36 → INTOOBSV 05-25 10:36
PROVIDERS: ADMIT Student in an Organized Health Care Education/Training Program; ATTEND Hospitalist
DX: G93.40 Encephalopathy, unspecified (principal); R53.1 Weakness; I67.4 Hypertensive encephalopathy; I69.351 Hemiplegia and hemiparesis following cerebral infarction affecting right dominant side; R47.01 Aphasia; I16.0 Hypertensive urgency; E78.5 Hyperlipidemia, unspecified; I25.10 Atherosclerotic heart disease of native coronary artery without angina pectoris; Z95.5 Presence of coronary angioplasty implant and graft; I10 Essential (primary) hypertension; F41.0 Panic disorder [episodic paroxysmal anxiety]; K21.9 Gastro-esophageal reflux disease without esophagitis; R29.810 Facial weakness; R26.89 Other abnormalities of gait and mobility; H53.9 Unspecified visual disturbance; I25.2 Old myocardial infarction; R47.81 Slurred speech
CPT/HCPCS: 36415; 70450; 70496; 70498; 70551; 80048; 80053; 80061; 81003; 82607; 82746; 83735; 84439; 84443; 84484; 85025; 96374; 97162; 97166; 99284; 99285; A9270; G0378; J1650; Q9967; 81001; 83721; 87086

== ENCOUNTER 2024-08-03 14:33 | Inpatient (IN) ==
--- NOTE | 2024-08-03 15:15 | ED Physician Documentation ---
PD HPI FOCAL NEURO Stated complaint Stated Complaint: LT EYE/NECK PX Chief complaint Chief Complaint: Neuro Additional information Additional information: 79-year-old woman with history of MD, 3 strokes, hypertension and hypercholesterolemia. She was admitted here a couple of months ago for hypertensive encephalopathy. Yesterday she developed blindness or at least decreased vision in the left eye. History is difficult because she is very somnolent so most of the history is from the . That got better or worse overnight and then today was feeling headachy and then became very somnolent in the last few hours. says she was feeling something funny in her neck as well. Review of Systems Status of ROS: unobtainable due to medical condition and unobtainable due to mental status Meds/Allgy Home Medications Ambulatory Orders Medication Instructions Recorded Confirmed cholestyramine (with sugar) 4 gram 4 g PO DAILY high chol ##0 12/31/23 05/25/24 powder for susp in a packet clopidogrel 75 mg tablet 75 mg PO DAILY stroke 12/31/23 05/25/24 amlodipine 5 mg tablet 5 mg PO QPM 30 days #30 tabs 05/27/24 atorvastatin 40 mg tablet 40 mg PO QPM 30 days #30 tabs 05/27/24 losartan 50 mg tablet 100 mg (2 x 50 mg) PO DAILY 05/27/24 hypertesnion 30 days #60 tabs metoprolol succinate 50 mg 100 mg (2 x 50 mg) PO DAILY 30 05/27/24 tablet,extended release 24 hr days #60 tabs Allergies Allergies Allergy/AdvReac Type Severity Reaction Status Date / Time levothyroxine sodium Allergy Unknown Verified 05/24/24 18:27 Sulfa (Sulfonamide Allergy Hives Verified 05/24/24 18:27 Antibiotics) [facility] Medical History Medical History (Updated 08/03/24 @ 17:08 by Gregory Maciel MD) CVA (cerebral vascular accident) Social History Social History Smoking Status: Never smoker If you are a former smoker, when did you quit? (Date/Year): 04/15/2000 Number of Years Smoked: 50 How many cigarettes a day do you smoke? (20 cigarettes=1 Pk): 3 Do you dip or chew tobacco?: No Patient requests smoking cessation consult: No Initiate information on smoking cessation: No Relationship: Spouse Level: Assisted Home Mobility Equipment: Walker Do you feel safe in your home environment?: Yes Suffered physical, verbal, emotional, or financial abuse?: No History of Abuse: No POLST Patient has POLST: No Exam Constitutional She is somnolent but in no distress, she arouses to vigorous stimulation. HENMT normocephalic and head/scalp atraumatic Eyes PERRL and EOMs intact bilaterally Neck/C-Spine no carotid bruits Respiratory normal respiratory effort and clear to auscultation bilaterally Cardiovascular normal heart rate noted, regular rhythm noted and no murmur Gastrointestinal nontender to palpation NIHSS Time Time: 15:10 Level of Consciousness Level of consciousness: (1) Not alert, but arousable by minor stimulation to obey, or answer LOC Questions: (2) Answers neither correct LOC Commands: (0) Performs both correctly Gaze Best Gaze: (0) Normal Visual Visual: (0) No loss Facial Palsy Facial Palsy: (0) Normal, symmetrical movement Motor Arms (both separate) Motor Arm (right): (1) Drift Motor Arm (left): (1) Drift Motor Legs (both separate) Motor Leg (right): (2) Some effort against gravity Motor Leg (left): (2) Some effort against gravity Limb Ataxia Limb Ataxia: (0) Absent Sensory Sensory: (0) Normal Best Language Best Language: (1) [id number] Dysarthria Dysarthria: (0) Normal Extinction and Inattention (formally neg Extinction and inattention: (0) No abnormality Total Score/Results Total Score/Result: 10 Results Vitals Vitals: Vital Signs - 24 hr 08/03/24 14:50 08/03/24 15:52 08/03/24 15:57 Temperature 36.6 C Temperature Source Temporal Artery Scan Pulse Rate 60 56 L 65 Respiratory Rate 14 Blood Pressure 183/71 H 211/77 H 186/68 H O2 Saturation 98 96 96 O2 Source Room air Room air Room air Pain Intensity 5 5 5 08/03/24 16:01 08/03/24 16:06 08/03/24 16:09 Temperature Temperature Source Pulse Rate 66 72 Respiratory Rate Blood Pressure 210/81 H 212/88 H 210/76 H O2 Saturation 96 95 93 O2 Source Room air Room air Room air Pain Intensity 5 5 5 08/03/24 16:15 Temperature Temperature Source Pulse Rate 74 Respiratory Rate 17 Blood Pressure 196/70 H O2 Saturation 93 O2 Source Nasal cannula Pain Intensity 5 Oxygen O2 Source Nasal cannula EKG (time done) 1553: EKG releavant findings:: EKG personally interpreted by author of this note. Relevant findings are: Twelve-lead EKG done at 1553 hrs. discloses normal sinus rhythm with a rate of 57, normal IN and QTc intervals, no ST elevation or depression. Labs Labs: Laboratory Tests 08/03/24 15:44 WBC 8.0 RBC 3.97 L Hgb 11.5 L Hct 36.8 L MCV 92.7 MCH 29.0 MCHC 31.3 L RDW 13.5 Plt Count 199 MPV 10.0 Neut # (Auto) 4.7 Lymph # (Auto) 2.6 [place] # (Auto) 0.5 Eos # (Auto) 0.2 Baso # (Auto) 0.0 Absolute Nucleated RBC 0.00 Nucleated RBC % 0.0 PT 10.9 INR 1.0 Sodium 137 Potassium 5.2 H Chloride 105 Carbon Dioxide 26 Anion Gap 6.0 BUN 21 H Creatinine 1.2 Estimated GFR (MDRD) 43 L Glucose 101 Calcium 9.3 Total Bilirubin 0.4 AST 20 ALT 14 Alkaline Phosphatase 63 Total Protein 6.8 Albumin 4.1 Globulin 2.7 Albumin/Globulin Ratio 1.5 Lipase 26 Procedures General procedure General procedure: She was very difficult for IV access. After multiple attempts I was able to place a long 22-gauge IV in the left cephalic vein PD Medical Decision Making ED course ED course: She presents with left eye blindness starting yesterday, it is unclear if that is still present. Now she is basically obtunded. She was admitted a couple of months ago for hypertensive encephalopathy and this seems similar. As such I thought long and hard about whether to start antihypertensive therapy or allow permissive hypertension for a possible stroke but since it seems more likely that this is hypertensive encephalopathy will treat with labetalol pending further workup. Subsequently there was no acute disease on CT imaging. Her labs were relatively unremarkable including CBC, CMP, and her EKG was nonischemic. After she had been on the Cardene drip for a while she was awake answering questions and her left eye blindness had resolved. Given the above though will place her in the ICU for hypertensive encephalopathy and discussed case with Dr. Vik Bullard for same at 5:07 PM. Critical Care Time(min): 42 Time Includes: Direct patient care, Review records, Reassess patient, Document care, Coordinate care, Medical consult and Family consult for tx dec Data interpretation: Labs and Pulse ox Procedures included in critical care time: Peripheral IV Procedures excluded from critical care time: EKG Discharge Plan Discharge Patient Disposition: 66 [facility] DC/Xfer Condition: Serious Clinical Impression: Encephalopathy, hypertensive, History of CVA (cerebrovascular accident), Stroke-like symptoms Prescriptions: No Action clopidogrel 75 MG tablet 75 mg PO DAILY 0RF cholestyramine (with sugar) 4 GM powder in packet 4 g PO DAILY Qty: 0 0RF atorvastatin 40 MG tablet 40 mg PO QPM 30 Days Qty: 30 0RF amlodipine 5 MG tablet 5 mg PO QPM 30 Days Qty: 30 0RF Rx Instructions: Start taking the evening of Friday05/28/2024 losartan 50 MG tablet 100 mg PO DAILY 30 Days Qty: 60 0RF metoprolol succinate 50 MG tablet extended release 24 hr 100 mg PO DAILY 30 Days Qty: 60 0RF Rx Instructions: 1/2 tablet by mouth daily Print Language: Cameroonian Stand Alone Forms: PCP List
[2024-08-03] MEDS ORDERED: iohexoL-300 100 ML VIAL ONE (15:28)
[2024-08-03 15:51] LABS: BASOPHILS % (AUTO) 0.5 %; EOSINOPHILS # (AUTO) 0.2 10^3/uL (0.0-0.7); EOSINOPHILS % (AUTO) 2.6 %; HCT - HEMATOCRIT 36.8 % (37.0-47.0); HGB - HEMOGLOBIN 11.5 g/dL (12.0-16.0); LYMPHOCYTES # (AUTO) 2.6 10^3/uL (1.5-3.5); MEAN CORPUSCULAR HGB CONC 31.3 g/dL (32.0-36.0); MEAN CORPUSCULAR VOLUME 92.7 fL (81.0-99.0); MONOCYTES # (AUTO) 0.5 10^3/uL (0.0-1.0); MONOCYTES % (AUTO) 5.9 %; NEUTROPHILS # (AUTO) 4.7 10^3/uL (1.5-6.6); NEUTROPHILS % (AUTO) 58.9 %; PLT - PLATELET COUNT 199 10^3/uL (130-450); RED BLOOD COUNT 3.97 10^6/uL (4.20-5.40); RED CELL DISTRIBUTION WIDTH 13.5 % (12.0-15.0)
[2024-08-03] MEDS: LABETALOL 20 MG/4 ML SYRINGE IVP STA (15:52)
[2024-08-03 15:55] LABS: PT - PROTHROMBIN TIME 10.9 secs (9.9-12.6)
[2024-08-03 16:06] LABS: ALBUMIN 4.1 g/dL (3.2-5.5); ALBUMIN/GLOBULIN RATIO 1.5 (1.0-2.2); BILIRUBIN,TOTAL 0.4 mg/dL (0.2-1.0); CALCIUM 9.3 mg/dL (8.5-10.3); CREATININE 1.2 mg/dL (0.6-1.3); POTASSIUM 5.2 mmol/L (3.5-4.5); TOTAL PROTEIN 6.8 g/dL (6.4-8.9)
[2024-08-03] MEDS: iohexoL-300 100 ML VIAL IVP ONE (16:09)
--- NOTE | 2024-08-03 16:20 | CT Report ---
PROCEDURE: CT Head W/O Stroke Protocol INDICATIONS: Neuro deficit, acute, stroke suspected TECHNIQUE: Noncontrast 4.5 mm thick angled axial sections acquired from the foramen magnum to the vertex, with c oronal reformats. For radiation dose reduction, the following was used: automated exposure control, adjustment of mA and/or kV according to patient size. COMPARISON: None. FINDINGS: Image quality: Excellent. The ventricular system and cortical sulci demonstrate atrophy, consistent for patient's stated age. There are areas of hypodensity in the periventricular and subcortical white matter. There is no acut e intra or extra-axial fluid collection. No acute hemorrhage, mass lesion or midline shift. Brainst em is unremarkable. Old left basal ganglia lacunar infarction. Globes are symmetrical. Sinuses are aerated. Osseous structures are intact. IMPRESSION: 1. No acute intracranial process. 2. Moderate atrophy and chronic microvascular ischemic changes. The above findings were discussed with Dr. Gregory Maciel on 08/03/2024 at 4:13 PM This study fulfills neurological imaging criteria for inclusion or exclusion of acute stroke therapie s based on available published neurological imaging guidelines. Reviewed by: Leeann Kimball MD on 08/03/2024 4:19 PM PDT Approved by: Leeann Kimball MD on 08/03/2024 4:19 PM PDT Station ID: [id number]
[2024-08-03] MEDS: NICARDIPINE HCL 25 MG in SODIUM CHLORIDE 0.9% 240 ML IV SCH (16:55)
--- NOTE | 2024-08-03 16:56 | CT Report ---
PROCEDURE: CT Angio Head/Neck INDICATIONS: cva sx TECHNIQUE: After the administration of intravenous contrast, 1 mm thick sections acquired from the aortic arch t hrough the [employer] of [employer]. 3-dimensional uscvioe-srzlzewdb-zxdtffavbu (MIP) and/or volume renderin g reformats were acquired of the central intracranial vasculature and neck separately. For radiation dose reduction, the following was used: automated exposure control, adjustment of mA and/or kV acco rding to patient size. CONTRAST: 80ml [id number] COMPARISON: 05/24/2024. FINDINGS: Image quality: Diagnostic. HEAD CT: Please refer to same-day CT of the head. HEAD CT ANGIOGRAPHY: Anterior circulation: Intracranial internal carotid arteries are normal in size and flow without ashli cifications or skin. The flow within the paired anterior cerebral arteries is normal and symmetric. The flow within the middle cerebral arteries is normal and symmetric. The anterior communicating ar arabella is seen. No aneurysms are seen. Posterior circulation: The right vertebral artery is dominant and forms the basilar artery. Left vert ebral artery is diminutive and terminates into PICA, a normal congenital variant. Multifocal areas of up to moderate stenosis throughout the left greater than right posterior cerebral arteries. No aneur ysms are seen. NECK CT ANGIOGRAPHY: Carotid system: The great vessels demonstrate a conventional anatomy as they arise from the aortic a rch with atherosclerotic calcifications. The origins of the common carotid arteries appear patent. The common carotid arteries demonstrate normal caliber and courses. The bifurcation regions demonstr ate atherosclerotic calcifications. There is mild stenosis of the right proximal ICA, less than 50%, and moderate stenosis of the left proximal ICA, approximately 50% Posterior circulation: The origins of the vertebral arteries both appear widely patent. The more bonilla perior extracranial portions of both vertebral arteries also demonstrate normal courses. The right ve rtebral artery is dominant. Soft tissues: Visualized neck soft tissues demonstrate no suspicious abnormalities. Bones: No suspicious bony lesions. Visualized cervical spine appears normally aligned. IMPRESSION: 1.No large vessel occlusion. 2.Multifocal areas of up to moderate stenosis throughout the bilateral posterior cerebral arteries, g reater on the left. 3.Right vertebral artery is dominant and forms the basilar artery. Left vertebral artery is diminutiv e and terminates in the PICA, a normal variant. 4.Atherosclerotic calcifications of the carotid bifurcations with mild stenosis on the right and mode rate stenosis on the left, approximately 50% The estimate of stenosis included in the report of the imaging study was calculated using the NASCET method Reviewed by: Alan Mas MD on 08/03/2024 4:54 PM PDT Approved by: Alan Mas MD on 08/03/2024 4:54 PM PDT Station ID: [id number]
--- NOTE | 2024-08-03 17:51 | HISTORY & PHYSICAL EXAMINATION ---
Chief Complaint Chief Complaint Chief Complaint: Visual disturbances History of Present Illness Admitted From Admitted From:: ED History Obtained From Records Reviewed: yes History obtained from: Patient, , chart review Exam Limitations: none History of Present Illness HPI Comment/Other: 79-year-old female history of [place], CVA x 3, hypertension, hyper cholesterolemiaWith a recent admission a few months ago for hypertensive encephalopathy. Yesterday, she developed visual field disturbances with decreased vision in the left side. The visual disturbances waxed and waned over the course of yesterday, and today she began having a headache and saying her neck felt funny. She was then brought to the emergency department In the ER, CT, CTA was performed which showed no acute abnormalities. It did however show some carotid stenosis. She was noted to have a blood pressure of212/88, so she was initiated on a Cardene drip, and hospitalist was contacted for admission Meds/Allgy Home Medications Ambulatory Orders Medication Instructions Recorded Confirmed cholestyramine (with sugar) 4 gram 4 g PO DAILY high chol ##0 12/31/23 05/25/24 powder for susp in a packet clopidogrel 75 mg tablet 75 mg PO DAILY stroke 12/31/23 05/25/24 amlodipine 5 mg tablet 5 mg PO QPM 30 days #30 tabs 05/27/24 atorvastatin 40 mg tablet 40 mg PO QPM 30 days #30 tabs 05/27/24 losartan 50 mg tablet 100 mg (2 x 50 mg) PO DAILY 05/27/24 hypertesnion 30 days #60 tabs metoprolol succinate 50 mg 100 mg (2 x 50 mg) PO DAILY 30 05/27/24 tablet,extended release 24 hr days #60 tabs Allergies Allergies Allergy/AdvReac Type Severity Reaction Status Date / Time levothyroxine sodium Allergy Unknown Verified 05/24/24 18:27 Sulfa (Sulfonamide Allergy Hives Verified 05/24/24 18:27 Antibiotics) [facility] Medical History Medical History (Updated 08/03/24 @ 17:08 by Gregory Maciel MD) CVA (cerebral vascular accident) Social History Social History Smoking Status: Never smoker If you are a former smoker, when did you quit? (Date/Year): 04/15/2000 Number of Years Smoked: 50 How many cigarettes a day do you smoke? (20 cigarettes=1 Pk): 3 Do you dip or chew tobacco?: No Patient requests smoking cessation consult: No Initiate information on smoking cessation: No Relationship: Spouse Level: Assisted Home Mobility Equipment: Walker Do you feel safe in your home environment?: Yes Suffered physical, verbal, emotional, or financial abuse?: No History of Abuse: No POLST Patient has POLST: No Review of Systems Somnolent elderly female, slow to respond but able to hold a conversation with effort Status of ROS: 10 or more systems reviewed and unremarkable except as noted in history and below Constitutional Reports: Fever and Chills Eyes Reports: Vision loss Cardiovascular Denies: Irregular heart rate, chest pain, palpitations or shortness of breath with exertion Respiratory Denies: Shortness of breath or Cough Gastrointestinal Denies: Abdominal pain, Nausea or Vomiting Genitourinary Denies: Painful urination Integumentary/Breast Denies: Rash Neurological Reports: Headache and General weakness Exam Constitutional normal general appearance, no apparent distress and average body habitus Eyes PERRL, EOMs intact bilaterally, normal visual queen by confrontation and visual acuity normal Neck/C-Spine visual inspection normal Lymph no lymphadenopathy noted Chest inspection of chest normal Respiratory breath sounds equal bilaterally and normal respiratory effort Cardiovascular normal heart rate noted, regular rhythm noted and edema noted (Trace bilateral) Gastrointestinal abdomen normal to inspection Genitourinary bladder normal to palpation 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 daily Changing her losartan to twice daily to see if this gives him more even coverage Adding HCTZ Will check a renal ultrasound to rule out renal artery stenosis causing this hypertension that is unmanaged with current regimen This is similar to her prior presentation, and CT, CTA are negative. Will consider MRI brain if her encephalopathy does not resolve, however given she does not have any lateralizing deficits I will assume that this is hypertensive emergency She was shivering at time of my assessment, she denied fevers and chills at first, but then when I asked why she was shivering she said she was feverish. Her UA was normal, and she has no respiratory symptoms. Will check COVID swab. No elevation in WBC Plan Discussed plan of care with patient and at bedside, they are in agreement Patient requests DNR status, but okay to intubate if necessary She designated her as her decision-maker Will defer POLST form at this time given patient is acutely encephalopathic Lab Results Lab results reviewed: Yes 08/03/24 15:44 08/03/24 15:44 Diagnostic Imaging Results Diagnostic Imaging Results: positive Final report reviewed Diagnostic Imaging Results Comments: CT head, CTA head and neck no acute findings Core Measures Anticipated LOS I expect patient to be DC'd or transferred within 96 hours.: Yes DVT/VTE - Prophylaxis VTE/DVT Device ordered at admit?: Yes VTE/DVT Prophylaxis med ordered at admit?: No
[2024-08-03] MEDS ORDERED: ACETAMINOPHEN 325 MG TABLET PO PRN (18:34)
[2024-08-03] MEDS ORDERED: SODIUM CHLORIDE FLUSH 0.9% 10 ML SYRINGE IVP PRN (18:34)
[2024-08-03] MEDS ORDERED: ONDANSETRON 4 MG/2 ML VIAL IVP PRN (18:34)
[2024-08-03] MEDS: hydroCHLOROthiazide 25 MG TABLET PO SCH (21:32)
[2024-08-03] MEDS: amLODIPine 5 MG TABLET PO SCH (21:33)
[2024-08-03] MEDS: ATORVASTATIN 40 MG TABLET PO SCH (21:33)
[2024-08-03] MEDS: FAMOTIDINE 20 MG TABLET PO SCH (21:41)
--- NOTE | 2024-08-03 22:19 | Ultrasound Report ---
PROCEDURE: US Arterial Visceral Complete INDICATIONS: Refractory hypertension, rule out renal artery alanis TECHNIQUE: Real time scanning was performed of both kidneys, followed by Color and pulsed Doppler in terrogation of the renal vessels. COMPARISON: CT abdomen pelvis with contrast 03/25/2024 FINDINGS: Please note that this examination is limited due to body habitus and overlying bowel gas. Aortic peak systolic velocity: 137 cm/s. Right side: Huitron-scale imaging: Kidney is 11.3 x 6.6 x 6.2 cm long. No hydronephrosis. No nephrolithiasis. Re nal cortex is normal in echogenicity. No suspicious solid renal masses. On the corresponding CT abd omen pelvis exam, there is mixed calcific and soft atheromatous plaque at the renal artery ostium. Proximal renal artery peak systolic velocity: 202.6 cm/s. Mid renal artery peak systolic velocity: 132.8 cm/s. Distal renal artery peak systolic velocity: 75.1 cm/s. Renal vein: Patent, without thrombus. Peak renal/aortic ratio (RAR): 1.5. Left side: Huitron-scale imaging: Kidney is 11.0 x 4.7 x 4.8 cm long. No hydronephrosis. No nephrolithiasis. Coa rse echotexture compared to the right kidney. No suspicious solid renal masses. Proximal renal artery peak systolic velocity: 140.2 cm/s. The mid/distal renal arteries and renal hilum are not well identified. Overall, poor visualization of the superior and inferior renal poles. IMPRESSION: 1.Overall, limited examination due to body habitus and overlying bowel gas. 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 3.Limited evaluation of the left kidney, with likely underlying medical renal disease. Reviewed by: Bryan Hudson MD on 08/03/2024 10:18 PM PDT Approved by: Bryan Hudson MD on 08/03/2024 10:18 PM PDT Station ID: [id number]
[2024-08-03 23:46] LABS: B. PARAPERTUSSIS- RESP PCR PAN NOT DETECTED; B. PERTUSSIS- RESP PCR PANEL NOT DETECTED; C. PNEUMONIAE- RESP PCR PANEL NOT DETECTED; CORONAVIRUS 229E-RESP PCR NOT DETECTED; CORONAVIRUS HKU1-RESP PCR NOT DETECTED; CORONAVIRUS NL63-RESP PCR NOT DETECTED; CORONAVIRUS OC43-RESP PCR NOT DETECTED; HUMAN METAPNEUMOVIRUS NOT DETECTED; INFLUENZA A- RESP PCR PANEL NOT DETECTED; INFLUENZA B - RESP PCR PANEL NOT DETECTED; M. PNEUMONIAE- RESP PCR PANEL NOT DETECTED; PARAINFLUENZA VIRUS 1 NOT DETECTED; PARAINFLUENZA VIRUS 2 NOT DETECTED; PARAINFLUENZA VIRUS 3 NOT DETECTED; PARAINFLUENZA VIRUS 4 NOT DETECTED; RHINOVIRUS/ENTEROVIRUS NOT DETECTED; RSV- RESP PCR PANEL NOT DETECTED; SARS-CoV-2 -RESP PCR PANEL NOT DETECTED
[2024-08-04] MEDS: SODIUM CHLORIDE FLUSH 0.9% 10 ML SYRINGE IVP SCH (01:14)
[2024-08-04 04:38] LABS: BASOPHILS # (AUTO) 0.1 10^3/uL (0.0-0.1); BASOPHILS % (AUTO) 0.8 %; EOSINOPHILS # (AUTO) 0.2 10^3/uL (0.0-0.7); HCT - HEMATOCRIT 34.2 % (37.0-47.0); HGB - HEMOGLOBIN 11.3 g/dL (12.0-16.0); LYMPHOCYTES # (AUTO) 1.5 10^3/uL (1.5-3.5); LYMPHOCYTES % (AUTO) 25.5 %; MEAN CORPUSCULAR HEMOGLOBIN 29.7 pg (27.0-31.0); MEAN CORPUSCULAR VOLUME 89.8 fL (81.0-99.0); MEAN PLATELET VOLUME 9.4 fL (7.9-10.8); MONOCYTES # (AUTO) 0.4 10^3/uL (0.0-1.0); MONOCYTES % (AUTO) 6.3 %; NEUTROPHILS # (AUTO) 3.8 10^3/uL (1.5-6.6); NEUTROPHILS % (AUTO) 64.1 %; PLT - PLATELET COUNT 184 10^3/uL (130-450); RED BLOOD COUNT 3.81 10^6/uL (4.20-5.40); RED CELL DISTRIBUTION WIDTH 13.4 % (12.0-15.0); WHITE BLOOD COUNT 5.9 x10^3/uL (4.8-10.8)
[2024-08-04 04:55] LABS: CALCIUM 8.9 mg/dL (8.5-10.3); CREATININE 1.1 mg/dL (0.6-1.3); POTASSIUM 3.7 mmol/L (3.5-4.5)
[2024-08-04 05:35] LABS: CALCIUM, IONIZED 1.11 mmol/L (1.15-1.33); VBG PH 7.415 (7.31-7.41)
[2024-08-04 05:48] LABS: PHOSPHORUS 4.7 mg/dL (2.5-5.0)
[2024-08-04] MEDS ORDERED: POTASSIUM CHLOR 10 MEQ/100 ML 10 MEQ/100 ML BAG IV SCH (06:00)
[2024-08-04] MEDS: POTASSIUM CHLORIDE 20 MEQ TABLET PO ONE (06:07)
[2024-08-04] MEDS: LOSARTAN 50 MG TABLET PO SCH (08:47)
[2024-08-04] MEDS: METOPROLOL SUCCINATE 50 MG TABLET PO SCH (08:47)
[2024-08-04] MEDS: CLOPIDOGREL 75 MG TABLET PO SCH (08:47)
[2024-08-04] MEDS: CHOLESTYRAMINE 4 GM PACKET PO SCH (09:00)
[2024-08-04] MEDS ORDERED: hydrALAZINE INJ 20 MG/ML VIAL IVP PRN (10:36)
--- NOTE | 2024-08-04 12:22 | PHARMACY PROGRESS NOTE ---
Best Possible Medication History Admit Date and Time: 08/03/24 [id number] Processed by: Pharmacy Medications reviewed in ED?: No Medication History completed: Yes Patient Interview: Pt unable to participate Secondary Source(s): Spouse/Significant other and Insurance records [facility] Statement: As the person ultimately responsible for medication therapy, providers are able to order a medication from an existing home medication list in [facility] via the "Reconcile Routine" prior to Confirmation of that medication by pharmacy retail support specialist. Such practice is discouraged except when the physician, in their clinical judgment, deems that a medical need exists for a medication without regard to previous use.
--- NOTE | 2024-08-04 15:27 | Discharge Summary ---
Discharge Summary Admit Date: 08/03/24 Discharge Date: 08/04/24 Discharging Provider: Hebert Abbott NP Primary Care Provider: Arnie Carrillo Code Status: Do Not Attempt Resuscitation DIAGNOSES Admission Diagnoses: Hypertensive encephalopathy Hyperkalemia Discharge Diagnoses with Status of Each Condition: Hypertensive encephalopathyresolved Hyperkalemiaresolved Hypertensionchronic Renal artery stenosischronic HPI History of Present Illness: 79-year-old female with past medical history significant for CVA, multiple admissions for hypertensive encephalopathy presented to the ER with headache, confusion. In the ER, CT head was performed and found to be negative. Blood pressure was noted to be212/88 at the highest. Patient was placed on Cardene drip and hospitalist was contacted for admission HOSPITAL COURSE Hospital Course: Patient was admitted to ICU for Cardene drip. I increased her amlodipine to 10 mg daily and added hydrochlorothiazide 25 mg daily. Renal artery ultrasound was performed which showed a stenosis on the right renal artery. Today, her blood pressure is down to 149/62. Neurosymptoms have resolved, and she is ready to go home ALLERGIES Allergies Allergy/AdvReac Type Severity Reaction Status Date / Time levothyroxine sodium Allergy Unknown Verified 05/24/24 18:27 Sulfa (Sulfonamide Allergy Hives Verified 05/24/24 18:27 Antibiotics) MEDICATIONS Ambulatory Orders Medication Instructions Recorded Confirmed clopidogrel 75 mg tablet 75 mg PO DAILY stroke 12/31/23 08/04/24 losartan 50 mg tablet 100 mg (2 x 50 mg) PO DAILY 05/27/24 08/04/24 hypertesnion 30 days #60 tabs metoprolol succinate 50 mg 100 mg (2 x 50 mg) PO DAILY 30 05/27/24 08/04/24 tablet,extended release 24 hr days #60 tabs acetaminophen 500 mg tablet 500 mg PO Q4H PRN fever or pain 08/04/24 08/04/24 amlodipine 5 mg tablet 10 mg (2 x 5 mg) PO QPM 30 days 08/04/24 #60 tabs atorvastatin 40 mg tablet 40 mg PO QPM #30 tabs 08/04/24 cholestyramine (with sugar) 4 gram 1 ea PO DAILY #30 ea 08/04/24 powder for susp in a packet hydrochlorothiazide 25 mg tablet 25 mg PO DAILY #30 tabs 08/04/24 rosuvastatin 20 mg tablet 20 mg PO HS 08/04/24 08/04/24 trazodone 50 mg tablet 50 mg PO HS 08/04/24 08/04/24 PHYSICAL EXAM AT DISCHARGE General Appearance: positive No acute distress ENT: positive ENT inspection nml Neck: positive Nml inspection Respiratory: positive Chest non-tender and No respiratory distress Cardiovascular: positive Regular rate & rhythm Peripheral Pulses: positive 2+ Abdomen: positive Non-tender Back: positive Nml inspection Skin: positive Color nml Extremities: positive Non-tender Neurologic/Psychiatric: positive Oriented x3 LABS 08/04/24 04:10 08/04/24 04:10 DIAGNOSTIC IMAGING Diagnostic Imaging Results: Final report reviewed Diagnostic Imaging Results Comments: CT head no acute findings CT angiogram with multifocal areas of up to moderate stenosis throughout the bilateral posterior cerebral arteries, greater on the left Renal artery ultrasound with renal artery stenosis on the right SEPSIS Current Stage of Sepsis: Ruled out FOLLOW UP Follow Up: With PCP. TIME SPENT Time Spent in Discharge (Minutes): 35 Discharge Plan Discharge Patient Disposition: [facility], Self Care Condition: Serious Prescriptions: New atorvastatin 40 mg Tablet 40 mg PO QPM Qty: 30 0RF amlodipine 5 mg Tablet 10 mg PO QPM 30 Days Qty: 60 0RF hydrochlorothiazide 25 mg Tablet 25 mg PO DAILY Qty: 30 0RF cholestyramine (with sugar) 4 gram Powder In Packet 1 ea PO DAILY Qty: 30 0RF Continued clopidogrel 75 MG tablet 75 mg PO DAILY 0RF losartan 50 MG tablet 100 mg PO DAILY 30 Days Qty: 60 0RF metoprolol succinate 50 MG tablet extended release 24 hr 100 mg PO DAILY 30 Days Qty: 60 0RF Rx Instructions: 1/2 tablet by mouth daily trazodone 50 mg tablet 50 mg PO HS rosuvastatin 20 mg tablet 20 mg PO HS acetaminophen 500 mg tablet 500 mg PO Q4H PRN (Reason: fever or pain) Discontinued amlodipine 5 MG tablet 5 mg PO QPM 30 Days Qty: 30 0RF Rx Instructions: Start taking the evening of Friday05/28/2024 Activity Restrictions: No Restrictions Diet: Regular Health Concerns: You are a 79-year-old female who has had multiple presentations to the hospital for extremely high blood pressures. You came into the hospital with some confusion and headache and other vague neurological symptoms. Workup was negative for stroke, but you were noted to have a extremely high blood pressure. You were admitted to the hospital and placed on a drip to lower this. At the same time, I adjusted your home blood pressure meds. I added a low-dose diuretic, and increased your dose of amlodipine Care Plan Goals: I would like you to continue monitoring your blood pressure, and consider adjusting the times of administration of your blood pressure medicines to get no more consistent low blood pressure. I would advise a very quick follow-up with your PCP, to ensure that your regimen is appropriate for you Plan of Treatment: Take blood pressure meds as ordered. Please present to the ER with any neurological changes Print Language: [place] Patient Instructions: Hypertension Dc Stand Alone Forms: PCP List Follow-up Care: Arnie Carrillo MD [Primary Care Provider] -
[2024-08-04 16:02] VITALS: O2SAT 95
[2024-08-05] MEDS ORDERED: PRENATAL VITAMIN TABLET PO SCH (08:00)
== END 2024-08-04 16:00 | disposition home or self-care (01) | DRG 79 ==
LOC: ED 14:33 → ICU 18:17
PROVIDERS: ADMIT Nurse Practitioner Acute Care; ATTEND Nurse Practitioner Acute Care
DX: I10 Essential (primary) hypertension; Z79.899 Other long term (current) drug therapy; Z86.73 Personal history of transient ischemic attack (TIA), and cerebral infarction without residual deficits; I25.2 Old myocardial infarction; I70.1 Atherosclerosis of renal artery; Z20.822 Contact with and (suspected) exposure to COVID-19; Z20.818 Contact with and (suspected) exposure to other bacterial communicable diseases; Z66 Do not resuscitate; I66.23 Occlusion and stenosis of bilateral posterior cerebral arteries; I65.29 Occlusion and stenosis of unspecified carotid artery; E87.5 Hyperkalemia; Z87.891 Personal history of nicotine dependence; Z20.828 Contact with and (suspected) exposure to other viral communicable diseases; E78.00 Pure hypercholesterolemia, unspecified; I67.4 Hypertensive encephalopathy